=== PATIENT | female | born 1940 | race Caucasian/White ===

== ENCOUNTER 2018-04-15 06:01 | Inpatient (IN) | payer MEDICARE ==
--- NOTE | 2018-04-11 14:43 | HP ---
DATE OF ADMISSION: 04/15/2018 CHIEF COMPLAINT: Low back pain. HISTORY OF PRESENT ILLNESS: This is a 77-year-old female with past medical history of AAA, hypertens ion and hyperlipidemia who reports to our office today for evaluation of low back pain with right L5 radiculopathy. The patient reports that she has had pain in her low back and leg for approximately 5 years. She does not remember any specific injury. She states that her pain is the worst in the mor patel when she gets up. When she is shopping at the grocery store, she will lean on the cart, which w ill help relieve her pain some. Today, her pain is a 5/10. She is currently in physical therapy, wh ich gives her some relief, but nothing lasting. She has also had epidural steroid injections. Her l ast one was in 2017 and she does not want any more of them. REVIEW OF SYSTEMS: A 10-point review of systems has been completed and is negative other than stated above in the HPI. PAST MEDICAL HISTORY: Prolapsed bladder, AAA, hyperlipidemia, hypertension. PAST SURGICAL HISTORY: Hysterectomy in 1982, hemorrhoidectomy in 1983, right shoulder 1994, left kiran ulder in 1995, cataracts in 2007. FAMILY HISTORY: Father is . Mother is . Children are alive. SOCIAL HISTORY: The patient is a former smoker. She drinks alcohol occasionally and does not use an y other illicit drugs. The patient drinks about a cup to two of caffeine daily. She is retired and . MEDICATIONS: Fenofibrate, telmisartan-HCTZ, pravastatin, tramadol and low-dose aspirin. ALLERGIES: No known drug allergies. PHYSICAL EXAMINATION: CONSTITUTIONAL: Well-appearing, well-nourished, alert. MENTAL STATUS: Oriented to time, place and person. Normal attention span and concentration. Speech is spontaneous and fluent. Comprehension intact. Content appropriate. Normal fund of knowledge. CRANIAL NERVES: Pupils equal, round and reactive to light. Extraocular movements intact. Hearing i s grossly intact. MOTOR: Muscle strength normal in lower extremities. Muscle tone and bulk normal in lower extremitie s. 5/5 bilateral strength in IP, KE, KF, DF, PF, EHL, right L5 radiculopathy. Negative single leg r aise bilateral. Rotation of bilateral hips normal. Tender to palpation of spinous processes at L2 t hrough the sacrum. Deep tendon reflexes 2+ patellar bilaterally, 2+ ankle bilaterally. SENSORY: Light touch intact. GAIT AND STATION: Sit to stand normal. Normal gait. RESPIRATORY: Normal work of breathing on room air. CARDIOVASCULAR: Regular rate and rhythm. SKIN: No rashes or lesions on exposed skin. PSYCHIATRIC: Normal mood and affect. IMAGING: MRI of the lumbar spine, normal lordosis of the lumbar spine, spondylolisthesis of L4-L5 an d L5-S1. ASSESSMENT: Lumbar spondylolisthesis. PLAN: Dr. Ham has offered laminectomy and TLIF for L4 through S1. We have discussed the indic ations, risks, benefits, alternatives and expected results from surgery. The risks discussed include d, but were not limited to bleeding, infection, CSF leak, nerve damage, weakness, incontinence, cauda equina injury, arachnoiditis, paralysis, ventilator dependence, wheelchair dependence, loss of visio n, hardware misplacement, cardiopulmonary complications of anesthesia or and long-term complica tions discussed included, but are not limited to degradation of surrounding disks and the need for fu rther surgery. The patient states that she understands the risks of surgery and was willing to proce ed.
[2018-04-15] MEDS ORDERED: Phenylephrine HCL 10 MG/ML VIAL ONE (06:17)
[2018-04-15] MEDS ORDERED: Albumin 5% 500 ML ONE ×2 (06:17→14:16)
[2018-04-15] MEDS ORDERED: Nitroglycerin 50 MG/250 ML BOT 250 ML ONE (06:17)
[2018-04-15] MEDS ORDERED: Bupivacaine HCl 0.5%/Epinephrine 1:200,000/PF 30 ml Vial ONE (06:18)
[2018-04-15] MEDS ORDERED: Thrombin 5000 UNITS/5 ML VIAL ONE (06:18)
[2018-04-15] MEDS ORDERED: Sodium Chloride 0.9% 20 ML ONE (06:18)
[2018-04-15] MEDS ORDERED: CEFAZOLIN/Water 2 GM/20 ML SYRINGE ONE (06:26)
[2018-04-15 06:32] LABS: #Basophils 0.1 thou/uL (0.0-0.2); #Eosinphils 0.4 thou/uL (0.0-0.7); #Monocytes 1.1 thou/uL (0.11-0.59); #Neutrophils 4.8 thou/uL (1.40-6.50); %Eosinophils 5.2 % (0.0-10.0); %Lymphocytes 23.8 % (21.0-51.0); %Monocytes 12.6 % (0.0-10.0); %Neutrophils 57.4 % (42.0-75.0); Hemoglobin 13.8 g/dL (12.0-16.0); Mean Corpuscular HGB CONC 32.9 g/dL (32.0-36.0); Mean Corpuscular Hemoglobin 32.1 pg (27.0-31.0); Mean Corpuscular Volume 97.8 fL (78.0-98.0); Mean Platelet Volume 6.6 fL (7.4-10.4); Platelet Count 326 thou/uL (130-400); RBC Distribution Width 10.9 % (11.5-14.5); Red Blood Cell (RBC) Count 4.29 mill/uL (4.20-5.40); White Blood Cell (WBC) Count 8.4 thou/uL (4.8-10.8)
[2018-04-15 06:43] LABS: PTT 36.2 SEC (22.9-36.1); Prothrombin Time 13.4 SEC (12.0-14.7)
[2018-04-15] MEDS ORDERED: Fentanyl 100 MCG/2 ML VIAL ONE ×5 (07:03→15:37)
[2018-04-15] MEDS ORDERED: Ondansetron HCl/PF 4 MG/2 ML Vial IVP PRN ×2 (12:27→13:01)
[2018-04-15] MEDS ORDERED: HYDROmorphone 2 MG/ML VIAL SLOW IVP PRN (12:27)
[2018-04-15] MEDS ORDERED: Promethazine HCl 25 MG/ML VIAL IM PRN (12:27)
[2018-04-15] MEDS ORDERED: Meperidine HCl/PF 25 MG/ML VIAL SLOW IVP PRN (12:27)
[2018-04-15] MEDS ORDERED: Morphine Sulfate 2 MG/ML SYRINGE SLOW IVP PRN (12:27)
[2018-04-15] MEDS ORDERED: Promethazine HCl 25 MG/ML VIAL SLOW IVP PRN (12:27)
[2018-04-15] MEDS ORDERED: Nitroglycerin 2% Ointment 1 INCH/1 GM Packet ONE (12:48)
[2018-04-15] MEDS ORDERED: traMADol HCl 50 MG TAB PO PRN ×3 (13:01→13:57)
[2018-04-15] MEDS ORDERED: Milk Of Magnesia 30 ML UDCUP PO PRN (13:01)
[2018-04-15] MEDS ORDERED: Mag-Al 1200 mg/1200 mg/30 ML UDCUP PO PRN (13:01)
[2018-04-15] MEDS ORDERED: Bisacodyl 10 MG SUPP PR PRN (13:01)
[2018-04-15] MEDS ORDERED: Promethazine 25 MG TAB PO PRN (13:01)
[2018-04-15] MEDS ORDERED: Acetaminophen 650 MG Suppository PR PRN (13:01)
[2018-04-15] MEDS ORDERED: Zolpidem Tartrate 5 MG TAB PO PRN (13:01)
[2018-04-15] MEDS ORDERED: Acetaminophen 325 MG TAB PO PRN (13:01)
[2018-04-15] MEDS ORDERED: diphenhydrAMINE 25 MG CAP PO PRN (13:01)
[2018-04-15] MEDS ORDERED: tiZANidine HCl 4 MG TAB PO PRN (13:01)
[2018-04-15] MEDS ORDERED: diphenhydrAMINE 50 MG/ML VIAL IVP PRN (13:01)
[2018-04-15] MEDS ORDERED: Estrogens, Conjugated 30 GM TUBE VAG SCH (13:15)
[2018-04-15] MEDS ORDERED: Lidocaine 1% PF 5 ML VIAL ONE (13:44)
[2018-04-15] MEDS ORDERED: Glycopyrrolate 0.2 MG/ML 5 ML SYRINGE ONE (13:44)
[2018-04-15] MEDS ORDERED: ePHEDrine/0.9% NaCl/PF SYRINGE 50 mg/10 ml ONE (13:44)
[2018-04-15] MEDS ORDERED: PROPOFOL 200 MG/20 ML VIAL ONE (13:44)
[2018-04-15] MEDS ORDERED: Metoclopramide HCl 10 MG/2 ML VIAL ONE (13:44)
[2018-04-15] MEDS ORDERED: PHENYLEPHRINE-NS 100 MCG/ML 10 ML SYRINGE ONE ×2 (13:44→13:50)
[2018-04-15] MEDS ORDERED: Ondansetron HCl/PF 4 MG/2 ML Vial ONE ×2 (13:44→14:22)
--- NOTE | 2018-04-15 13:50 | OP ---
DATE OF PROCEDURE: 04/15/2018 SURGEON: Tommie Ham M.D. COMPOSING ROOM MACHINIST: Mira Dumas PA-C. PREOPERATIVE INDICATION: Treat pain, prevent neurological deterioration. PREOPERATIVE DIAGNOSES: Spondylolisthesis with resulting foraminal stenosis at L4-L5 causing L4 radi culopathy, spondylolisthesis at L5-S1 causing both canal and foraminal stenosis causing neurogenic cl audication and L5 radiculopathies. POSTOPERATIVE DIAGNOSES: Spondylolisthesis with resulting foraminal stenosis at L4-L5 causing L4 rad iculopathy, spondylolisthesis at L5-S1 causing both canal and foraminal stenosis causing neurogenic c laudication and L5 radiculopathies. OPERATIVE PROCEDURE: Decompressive laminectomy, facetectomy, foraminotomy to treat neural compressio n at L4-L5 and L5-S1, transforaminal lumbar interbody arthrodesis at L4-L5, L5-S1, placement of inter vertebral biomechanical device at L4-L5, L5-S1, pedicle screw and ximena instrumentation at L4-L5, L5-S1 , posterolateral arthrodesis at L4-L5, L5-S1, local morselized autograft, morselized allograft. PREOPERATIVE MEDICATION: Ancef 2 grams IV. DRAIN NUMBER: Zero. DRAIN TYPE: None. OPERATIVE DICTATION: The patient was brought to the operating room. General endotracheal anesthesia was induced. The patient was positioned prone on the [place] frame and a lateral fluoro radiograph was used to plan our incision. The lumbar skin was sterilely prepped and draped. We opened with a 1 0 blade knife and controlled bleeding with bipolar and monopolar cautery. We used monopolar cautery to dissect through subcutaneous tissues to the thoracodorsal fascia. We incised the fascia in the mi dline and we reflected paraspinal muscles off the spinous process and lamina of L4, L5, and S1. A se lf-retaining retractor was placed. Lateral fluoro radiograph confirmed the levels upon which we were operating. We then carried our dissection over the facet joints to identify the transverse process of L4-L5 and the sacral ala bilaterally. We irrigated with bacitracin irrigation. Self-retaining re tractors gave us visualization from L4-S1. We then used Adson and Kerrison rongeurs to fashion a ortega inectomy from L4 to the sacrum. We widened our laminectomy defect until we could access the vertebra l foramina. We widely opened the foramen at L4-L5 around the L4 nerve roots as well as at L5-S1 arou nd the L5 nerve roots to ensure no further radicular compression. We then turned our attention to ar throdesis. We accessed the intervertebral space through the foramen at L4-L5 and L5-S1 from the right side. We incised the disk space and removed disk contents using curettes and rongeurs. A rectangular shaped b one rasp was used to measure the height of each of the interspaces. L5-S1 measured 9 mm and L4-L5 me asured 11 mm. The appropriately sized PEEK intervertebral grafts were brought into the field. Jam ectomy bone was carefully morselized on the back table after all soft tissue was removed from it. Th e morselized bone was added to demineralized bone matrix and formed our fusion substrate. This subst rate was packed into the PEEK grafts and the grafts were advanced into their respective interspaces u nder radiographic guidance to the appropriate depth. We turned our attention to instrumentation. Using bony anatomic landmarks, palpation of the medial portion of the pedicles, and a lateral fluoro radiograph as a guide, we chose pedicle screw entry points at L4, L5, and S1 bilaterally. We drilled out the entry points and used the bone awl to create a trajectory through the pedicles into the vert ebral bodies. We tapped each trajectory and found them completely encased in bone. We placed pedicl e screws at L4, L5 and S1 bilaterally. The left-sided pedicle screw at S1 stripped due to low densit y bone. We placed a larger rescue screw in the hole and augmented that with bone cement. A 360 degr ee image set was generated with our isocentric C-arm, which confirmed adequate position of all our pe dicle screws. We irrigated once again with bacitracin irrigation and then we used a high-speed drill to decorticate the transverse process of L4, L5 and the sacral ala bilaterally. Over the decorticat ed bone, we left demineralized bone matrix and morselized autograft as posterolateral fusion substrat e. We then brought rods down into the screw heads and tightened caps over the rods. Using a keven sive force across the interspace to keep our interbody grafts in place, we used a scsmfb-[id number]-[id number] [id number] mechanism for adequate final tightening of the caps down on the rods. We irrigated once more with bacitracin irrigation. We ensured the vertebral foramen were still widely patent with foraminotomy Kerrisons. We infused local anesthetic in the paraspinal muscles. We closed the wound in anatomic l palomino. We applied a sterile dressing. This was a clean case and no contamination.
[2018-04-15] MEDS ORDERED: DOPamine 400 MG/D5W 250 ML 250 ML ONE (13:59)
[2018-04-15] MEDS ORDERED: Norepinephrine 4 MG/4 ML VIAL ONE ×2 (14:12→14:16)
[2018-04-15 15:02] LABS: Hemoglobin 10.6 g/dL (12.0-16.0)
[2018-04-15] MEDS ORDERED: Morphine 4 MG/ML VIAL ONE (15:16)
[2018-04-15 15:20] LABS: Anion Gap 14 mmol/L (10-20); BUN (Urea Nitrogen) 19 mg/dL (9.8-20.1); Calc. Creatinine Clearance 48 mL/min (70-130); Carbon Dioxide 19 mmol/L (23-31); Chloride 106 mmol/L (98-107); Estimated GFR-MDRD 56; Glucose 127 mg/dL (83-110); Potassium 3.8 mmol/L (3.5-5.1); Sodium 135 mmol/L (136-145)
[2018-04-15 15:27] LABS: Troponin I 0.011 ng/mL (< 0.028)
--- NOTE | 2018-04-15 15:32 | RAD ---
CHEST 1 VIEW: HISTORY: Status post surgery. COMPARISON: None. FINDINGS: Atherosclerosis of the aorta. Enlarged cardiac silhouette. Pulmonary vessels are within normal limi ts. Patchy reticulonodular opacities. No consolidation or mass. No pneumothorax or osseous abnorma lities. IMPRESSION: Cardiomegaly. Pulmonary vascular prominence and interstitial opacities. Correlate for congestive he art failure. An infiltrate cannot be excluded. Continued surveillance. POS: [facility]
[2018-04-15 15:33] LABS: CKMB 7.8 ng/mL (0-6.6)
[2018-04-15 16:32] VITALS: BMI 11.0
--- NOTE | 2018-04-15 17:17 | CON ---
DATE OF CONSULTATION: 04/15/2018 REASON FOR CONSULTATION: Hypotension and EKG changes. HISTORY OF PRESENT ILLNESS: Ms. Evans is a very pleasant 77-year-old woman who recently underwen t laminectomy, facetectomy and foraminotomy to treat neural compression. In the postoperative period, she developed hypotension and abdominal discomfort. She did require Thanh -Synephrine for blood pressure support. She did have significant EKG changes from her baseline. Her baseline EKG did suggest T-wave inversion from LVH. She did not describe chest pain or pressure. S he was conscious during the entire episode. She was placed in Trendelenburg. A bedside echo was performed in a stat fashion. Her LVEF appeared to be underfilled with no wall mot ion abnormalities. PAST MEDICAL HISTORY: AAA, hyperlipidemia, hypertension, prolapsed bladder. PAST SURGICAL HISTORY: Hysterectomy, hemorrhoidectomy, shoulder surgery, cataract surgery. SOCIAL HISTORY: No current tobacco or alcohol use. MEDICATIONS: Include fenofibrate, hydrochlorothiazide, pravastatin, tramadol, telmisartan and aspiri n. ALLERGIES: None. REVIEW OF SYSTEMS: Ten-point review of systems was difficult to obtain. PHYSICAL EXAMINATION: GENERAL: The patient is a pleasant female who is in no acute distress. The patient appears her stat ed age. She is currently on Thanh-Synephrine. VITAL SIGNS: Blood pressure 110/70, pulse 80, respirations 20. NEUROLOGIC: The patient is alert and oriented times 3 with no focal neurologic deficits. HEENT: Sclerae without icterus. Mouth has moist mucous membranes with normal pallor. NECK: No JVD. Carotid upstroke brisk. No bruits bilaterally. LUNGS: Clear to auscultation with unlabored respirations. BACK: No scoliosis or kyphosis. CARDIAC: Regular rate and rhythm with normal S1 and S2. No S3 or S4 noted. No significant rubs, mu rmurs, thrills, or gallops noted throughout the precordium. PMI is not displaced. There is no loli ternal heave. ABDOMEN: Soft, nontender, nondistended. No peritoneal signs present. No hepatosplenomegaly. No ab normal striae. EXTREMITIES: 2+ femoral and 2+ dorsalis pedis pulses. No cyanosis, clubbing, or edema. SKIN: No gross abnormalities. PERTINENT LABS: Hemoglobin 10.6. Peak troponin 0.011 with a CK-MB of 7.8. EKG as above. IMPRESSION: 1. Hypotension. 2. Abnormal EKG. RECOMMENDATIONS: Ms. Evans, after checking on Ms. Evans several times this afternoon, appear s to be improving. After several hours, she was seen sitting up. She never had chest pain or pressu re. Her CK-MB is likely related to surgery. Her troponin is negative. Etiology to hypotension is u nknown. We will continue support with fluids given that her LV appeared underfilled. Would also con tinue support with Thanh-Synephrine. I did spend 40 minutes of critical care time at bedside to discuss the case with Dr. Tsang in [facility] n to reviewing her echo in the acute phase.
[2018-04-15] MEDS: CEFAZOLIN/Water 2 GM/20 ML SYRINGE SLOW IVP SCH ×2 (17:44→22:58)
[2018-04-15] MEDS ORDERED: Norepinephrine 8 MG/250 ML BAG IVPB PRN (18:42)
[2018-04-15] MEDS: Sodium Chloride 0.9% 1,000 ML IV SCH (20:57)
[2018-04-15] MEDS: Simvastatin 5 MG TAB PO SCH (20:57)
[2018-04-15] MEDS ORDERED: Non-Formulary Item 1 EACH (Telmisartan/Hydrochlorothiazid [Telmisartan-Hctz 80-12.5 Mg Tb PO SCH (21:00)
[2018-04-15] MEDS: Fenofibrate Nanocrystallized 145 MG TAB PO SCH (21:00)
[2018-04-15] MEDS: Hydrochlorothiazide 25 MG TAB PO SCH (21:00)
[2018-04-15] MEDS: Acetaminophen/Codeine 30-300mg Tablet PO PRN (21:06)
[2018-04-16] MEDS: Acetaminophen/Codeine 30-300mg Tablet PO PRN ×6 (00:53→20:19)
--- NOTE | 2018-04-16 05:53 | PDOC.CTH ---
Cardiology Progress Note - Objective Vital Signs Temp Pulse Resp Pulse Ox 04/16/18 03:36 98.1 F 04/16/18 00:00 98.4 F 04/15/18 20:00 98.1 F 84 18 95 04/15/18 19:00 98.1 F Weight 62 lb 1 oz 04/14/18 04/15/18 04/16/18 06:59 06:59 06:59 Intake Total 524.9 Output Total 1000 Balance -475.1 - Labs Result Diagrams: 04/15/18 14:51 04/15/18 14:51 Troponin/CKMB CK-MB (CK-2) 7.8 ng/mL (0-6.6) H* 04/15/18 14:51 Troponin I 0.011 ng/mL (< 0.028) 04/15/18 14:51 - Assessment/Plan Hypotension EKG changes Pt is off presors currently. Etiology to recent demise likely related to demand ischemia post op or from general anesthesia Initial troponin and CKMB negative Ok to transfer to surgical
[2018-04-16 06:42] LABS: CKMB 11.5 ng/mL (0-6.6); Troponin I 1.363 ng/mL (< 0.028)
--- NOTE | 2018-04-16 06:48 | PRG ---
DATE OF SERVICE: 04/16/2018 I saw Ms. Evans in ICU this morning. She is 1 day out from decompression fusion lumbar spine for spondylolisthesis at L4-5 and L5-S1 causing neural compression. Postoperatively, she had a slow rec overy from anesthesia. Her blood pressure was low and as best I can tell, she was hypovolemic and devi ving effects of anesthesia. Pressors were added and then her blood pressure returned to a range that was too high after which Cardiology was consulted for ST segment changes and blood pressure lability . Troponins were negative, but she was placed in the ICU for monitoring. Cardiology has already see n her this morning and cleared her for transfer to the surgical floor. Ms. Evans is wide awake t his morning. She is doing well. She is moving her legs well. She does not have any radiating pain down her legs. She has some anterior thigh numbness from positioning on the operative table, but oth erwise she feels well. She is ready to get fitted for her brace and wants to get moving with physica l therapy. We will make plans for those things to happen today. Her vitals and examination are stab le and I think she is ready for the change in location.
[2018-04-16] MEDS: Sodium Chloride 0.9% 1,000 ML IV SCH (09:59)
--- NOTE | 2018-04-16 13:24 | PRG ---
DATE OF SERVICE: 04/16/2018 HISTORY: Ms. Evans is currently doing well, no current complaints of chest pain, pressure, short ness of breath. She is off Thanh-Synephrine. She is only on normal saline. PHYSICAL EXAMINATION: VITAL SIGNS: Blood pressure 106/48, pulse 58, temperature 83. GENERAL: Patient is a pleasant female who is in no acute distress. The patient appears her stated ag e. NEUROLOGIC: The patient is alert and oriented times 3 with no focal neurologic deficits. HEENT: Sclerae without icterus. Mouth has moist mucous membranes with normal pallor. NECK: No JVD. Carotid upstroke brisk. No bruits bilaterally. LUNGS: Clear to auscultation with unlabored respirations. BACK: No scoliosis or kyphosis. CARDIAC: Regular rate and rhythm with normal S1 and S2. No S3 or S4 noted. No significant rubs, mur murs, thrills, or gallops noted throughout the precordium. PMI is not displaced. There is no parast ernal heave. ABDOMEN: Soft, nontender, nondistended. No peritoneal signs present. No hepatosplenomegaly. No abn ormal striae. EXTREMITIES: 2+ femoral and 2+ dorsalis pedis pulses. No cyanosis, clubbing, or edema. SKIN: No gross abnormalities. PERTINENT LABS: Hemoglobin 10.6. Peak troponin 1.3. CK-MB of 11.5. IMPRESSION: 1. Hypotension. 2. Abnormal EKG. RECOMMENDATIONS: Ms. Evans did have elevated troponin of 1.3. This is likely related to hypoten yinka. Etiology unknown, but may be related to anesthesia. During the episode of hypotension her LVE F was hyperdynamic with LVEF greater than 60%. I did state that if this was due to profound ischemia her LVEF likely would have been affected causing a marked drop in EF. Given that her EKG did appear to worsen she likely had underlying coronary disease. Given that she has no current symptoms we nicanor l continue current medical therapy. I would not recommend a more aggressive approach, given the need for anticoagulation therapy and recent back surgery. At this point, I recommend statin therapy in a ddition to beta ricardo therapy when blood pressure tolerates. I would recommend outpatient workup.
[2018-04-16] MEDS: Fenofibrate Nanocrystallized 145 MG TAB PO SCH (20:18)
[2018-04-16] MEDS: Simvastatin 5 MG TAB PO SCH (20:19)
[2018-04-16] MEDS: Hydrochlorothiazide 25 MG TAB PO SCH (20:59)
[2018-04-17] MEDS: Acetaminophen/Codeine 30-300mg Tablet PO PRN ×3 (04:01→19:20)
--- NOTE | 2018-04-17 07:12 | PRG ---
DATE OF SERVICE: 04/17/2018 Ms. Evans is now 2 days out from decompression fusion lumbar spine. She has not had any symptoma tic hypotension since the episode postoperatively. She has been doing well and she is on a general t thomas floor currently. Physical therapy has worked with her and she uses her brace when she is out of bed. Although there is some discomfort over the greater trochanteric bursa and some femoral cutaneou s nerve paresthesias from both of which were from positioning on the operating table, there is no rad iculopathic pain down the legs. She is pleased with the surgical result. On examination, I do not f ind any new deficits. Her troponin did bump over 1 from her hypotensive episode, but she had no wall motion abnormalities. Our plan for Ms. Evans is to move to inpatient rehabilitation. She expressed her wishes to be co nsidered a candidate for that today and will have the appropriate people come and evaluate her to see she is. If so, we can transfer her any time. We will continue physical therapy until we have a dis position plan for her. Her daughter and other children are concerned about her going home with her e lderly in [place] and living on their own. There is some hesitancy with activities of rosa ly living that might benefit from inpatient rehabilitation.
[2018-04-17] MEDS ORDERED: Iopamidol 370 76% 100 ML VIAL ONE (13:04)
[2018-04-17 14:24] LABS: CO2 Tension 27.2 mmHg (35.0-45.0); pH, Arterial 7.51 (7.35-7.45)
[2018-04-17 14:25] LABS: Actual Bicarbonate (HCO3a) 21.1 mEq/L (22-28); Base Excess (BEa) -1.1 mEq/L (-2.0 to +3.0); Calcium, Ionized 1.1 mmol/L (1.12-1.30); Carboxyhemoglobin (COHb) 0.7 gm% (0.0-3.0); Hemoglobin (Hb) 10.3 g/dL (12.0-16.0); O2 Tension (PaO2) 44.9 mmHg (> 70.0); Potassium - ABG Lab 4.3 mmol/L (3.70-5.30); Puncture Site RRA
--- NOTE | 2018-04-17 14:41 | PDOC.PN ---
- Subjective Encounter Start Date: 04/17/18 Encounter Start Time: 14:39 Subjective: called to code green, respiratory distress. post op 2 days - Objective MAR Reviewed: Yes Vital Signs & Weight: Vital Signs (12 hours) Temp Pulse Pulse Pulse Resp BP BP 04/17/18 14:19 118 H 123 H 133/79 133/71 04/17/18 12:00 100.5 F H 86 20 04/17/18 08:05 97.9 F 80 16 04/17/18 07:45 97.9 F 80 16 04/17/18 04:00 98.9 F 91 18 BP Pulse Ox Pulse Ox 04/17/18 14:19 79 L 04/17/18 12:00 98/52 L 92 L 04/17/18 08:05 92 L 04/17/18 07:45 101/54 L 92 L 04/17/18 04:00 98/48 L 96 Weight Weight 136 lb Most Recent Monitor Data Heart Rate from ECG 81 NIBP 98/47 NIBP BP-Mean 69 Respiration from ECG 25 SpO2 100 I&O: 04/16/18 04/17/18 04/18/18 06:59 06:59 06:59 Intake Total 1658.6 2736 Output Total 1225 1050 Balance 433.6 1686 Result Diagrams: 04/17/18 14:20 04/17/18 14:20 Radiology Reviewed by me: Yes (CTA- no pE) EKG Reviewed by me: Yes (RSSR, LVH with repol abn) Phys Exam - Physical Examination Neck: no JVD Respiratory: clear to auscultation bilateral Cardiovascular: no significant murmur tacycardia Gastrointestinal: soft, positive bowel sounds Musculoskeletal: no edema some R calf tenderness Neurological: non-focal Dx/Plan (1) Acute respiratory failure with hypoxia Code(s): J96.01 - ACUTE RESPIRATORY FAILURE WITH HYPOXIA Status: Acute (2) Respiratory distress Code(s): R06.03 - ACUTE RESPIRATORY DISTRESS Status: Acute (3) Hypertension Code(s): I10 - ESSENTIAL (PRIMARY) HYPERTENSION Status: Chronic Qualifiers: Hypertension type: essential hypertension Qualified Code(s): I10 - Essential (primary) hypertension (4) Fever Code(s): R50.9 - FEVER, UNSPECIFIED Status: Acute Qualifiers: Fever type: unspecified Qualified Code(s): R50.9 - Fever, unspecified (5) Leukocytosis Code(s): D72.829 - ELEVATED WHITE BLOOD CELL COUNT, UNSPECIFIED Status: Acute - Plan CTA chest stat. ABG, cbc, trop, etc stat. echo ordered -: on non-rebreather O2 -: Add: CTA no PE, trop decresed from 04/16 -: cardiology, intensivst called -: treat for early PNA * .
[2018-04-17 14:44] LABS: Hemoglobin 9.8 g/dL (12.0-16.0); Mean Corpuscular Hemoglobin 33.2 pg (27.0-31.0); Mean Corpuscular Volume 97.7 fL (78.0-98.0); Mean Platelet Volume 6.8 fL (7.4-10.4); Platelet Count 264 thou/uL (130-400); RBC Distribution Width 10.8 % (11.5-14.5); Red Blood Cell (RBC) Count 2.96 mill/uL (4.20-5.40); White Blood Cell (WBC) Count 16.5 thou/uL (4.8-10.8)
[2018-04-17 14:52] LABS: Anion Gap 13 mmol/L (10-20); BUN (Urea Nitrogen) 16 mg/dL (9.8-20.1); Calc. Creatinine Clearance 43 mL/min (70-130); Calcium 8.6 mg/dL (7.8-10.44); Carbon Dioxide 23 mmol/L (23-31); Chloride 102 mmol/L (98-107); Estimated GFR-MDRD 50; Glucose 131 mg/dL (83-110); Potassium 4.2 mmol/L (3.5-5.1); Sodium 134 mmol/L (136-145)
[2018-04-17 15:02] LABS: Band 6 % (5-11); Lymphocytes 4 % (21-51); MDiff Complete? YES; Monocytes 5 % (0-10); Neutrophil 85 % (42-75); PLT Morphology Comment Appears Adequate; Polychromasia SLIGHT = 2-3 cells (100X) (0-2/hpf); Troponin I 0.837 ng/mL (< 0.028); Vacuoles SLIGHT
--- NOTE | 2018-04-17 15:24 | RAD ---
SUPINE PORTABLE CHEST ONE VIEW: History: 77-year-old female with history of acute dyspnea. Code Green. FINDINGS: Monitor leads overlie the chest. There are some bilateral vascular congestion and what may be some ve ry mild perihilar interstitial edema. Heart size is upper range of normal. No confluent pneumonia. Li ttle change from prior exam 04-15-18. IMPRESSION: Overall stable exam from 04-15-18 with bilateral vascular congestion and mild interstitial edema. No n ew confluent process. Atherosclerosis of the aorta with ectasia. Little changed from prior study. POS: [facility]
--- NOTE | 2018-04-17 15:42 | CT ---
CT ANGIOGRAM OF THE CHEST: Date: 04/17/18 HISTORY: Possible pulmonary artery embolism. Patient has had a previous laminectomy. Today, patient presents w ith shortness of breath. COMPARISON: None. TECHNIQUE: CT angiogram of the chest is performed in the axial plane. Three-dimensional reformatted images are s ubmitted for interpretation. FINDINGS: Trachea and central bronchi are patent. There are interstitial and alveolar opacities involving both upper lobes and superior segment of both lower lobes. Adjacent pleural fluid is noted. Atelectasis, p neumonia, and/or aspiration should be considered. Note, there is a nodular opacity in the right upper lobe measuring 1.0 x 0.9 cm. Nodular opacity in t he left upper lobe measuring 0.5 x 0.8 cm. There is no pneumothorax. Visualized upper solid organs are grossly unremarkable. Hypodensity in the left hepatic lobe, compati ble with a cyst. There is a nonspecific peripancreatic lesion, incompletely evaluated, measuring 1.0 x 1.5 cm. The heart size is within normal limits. No pericardial effusion. The thoracic aorta and upper abdomin al aorta do demonstrate atherosclerosis. There is mild to moderate narrowing of the distal descending thoracic aorta. No aneurysm. There is increased hypodensity in a subcarinal region. The possibility of subcarinal lymphadenopathy cannot be excluded. Possible lymph node measures 2.0 x 2.4 cm. Additional precarinal lymph node is lbackburn spected, measuring 2.2 x 2.0 cm. Adequate contrast opacification of the pulmonary arterial system to the level of the segmental arteri es. No filling defect to suggest thromboembolism. No lytic or blastic lesions in the osseous structures. IMPRESSION: 1. No evidence of pulmonary artery embolism to the level of the segmental arteries. 2. Nonspecific mediastinal lymphadenopathy, worrisome for infectious, inflammatory, and malignant pr ocess, until proven otherwise. 3. Opacification of lung parenchyma, which is presumed to be due to aspiration, pneumonia, or atelec tasis. However, there appear to be two nodular opacities in the lungs as described above. Given the p resence of lymphadenopathy, underlying neoplastic process cannot be completely excluded. 4. Incompletely evaluated soft tissue mass in the peripancreatic region, also incompletely evaluated . Further evaluation with abdomen CT and pelvic CT is recommended. CODE T. POS: [facility]
[2018-04-17] MEDS ORDERED: Sodium Chloride 0.9% 500 ML IV SCH (16:30)
--- NOTE | 2018-04-17 16:39 | CON ---
DATE OF CONSULTATION: 04/17/2018 CRITICAL CARE NOTE Total critical care time 40 minutes. HISTORY OF PRESENT ILLNESS: Ms. Evans is a very pleasant 77-year-old woman who was doing relativ kandace well. She was undergoing rehabilitation today on telemetry monitoring. She states she began hav ing shakiness. She then had an episode of shortness of breath and became hypoxic. There was concern for PE. Riccardo Fierro was called. I visited with Ms. Evans while she was having her stat CT scan performed. At that point, her blood pressure and heart rate were stable. She has no current symptom s except for pain noted below her knees bilaterally. No chest pain, pressure or shortness of breath. Blood pressure at that time was 110/60 with pulse of 86. She did have nonrebreather oxygenating at 95%. I then visited Ms. Evans as she proceeded to the ICU for close observation. She underwent a stat echo that showed a hyperdynamic LVEF. LVEF did appear under-filled. No wall motion abnormalities p resent. I also discussed the case on several occasions with Dr. Ham. There is concern for antiplatelet or anticoagulation therapy for Ms. Evans due to recent laminectomy and risk of hematoma. Given that she has no current symptoms of angina and had her LVEF is hyperdynamic with no wall motion abnor malities with negative PE, would recommend close observation. Would recommend IV fluids. We will gi ve a 500 mL bolus of fluid followed by 150 mL an hour. We will check CK troponins. May consider ang iography, but mainly be diagnostic if needed at some point.
[2018-04-17] MEDS: cefTRIAXone\\ROCEPHIN 2 GM in Sodium Chloride 0.9% 100 ML IVPB SCH (16:47)
[2018-04-17] MEDS: Sodium Chloride 0.9% 1,000 ML IV SCH (16:51)
[2018-04-17] MEDS: Azithromycin 500 MG in Sodium Chloride 0.9% 250 ML 250 ML IVPB SCH (16:53)
--- NOTE | 2018-04-17 16:53 | ULT ---
BILATERAL LOWER EXTREMITY VENOUS DOPPLER ULTRASOUND: Date: 04/17/18 HISTORY: Immobility. Lower extremity swelling. TECHNIQUE: Ward scale ultrasound with color flow and spectral Doppler imaging of the deep venous systems of the lower extremities was performed bilaterally. FINDINGS: There is good flow, compression, and augmentation noted in the common femoral, femoral, deep femoral, popliteal, posterior tibial, and greater saphenous veins on either side. 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 IMPRESSION: No evidence of deep venous thrombosis in either lower extremity. POS: [facility]
--- NOTE | 2018-04-17 18:30 | HP ---
DATE OF ADMISSION: 04/15/2018 HISTORY OF PRESENT ILLNESS: The patient was admitted to the hospital 04/15/2018, had a decompressive laminectomy, facetectomy, etc., on 04/15/2018. I was walking down the hallway when a code green was called on the patient. I walked into the room, she was in respiratory distress, ashen with some per ipheral cyanosis. I quickly checked and found that she had no hospitalist seeing her. I asked her a nd the family if they were comfortable with my caring for, they said yes and I assumed her care. The patient had had troubles earlier in the day with being shaky. She has had a fever to 100.5 last nig ht. She was short of breath, had some tightness in her chest. I found that she had O2 saturations i n the 80s. Multiple studies were ordered. The patient was moved to the intensive care unit on nonre breather. PAST MEDICAL HISTORY: In addition to the recent surgery reveals history of hypertension, dyslipidemi a, prolapsed bladder, abdominal aortic aneurysm. PAST SURGICAL HISTORY: Hysterectomy, hemorrhoidectomy, right shoulder, left shoulder and cataract blackburn rgery. FAMILY HISTORY: Parents were . SOCIAL HISTORY: Former smoker, occasional alcohol. Full code status. MEDICATIONS: Routinely include fenofibrate, HCTZ-telmisartan, pravastatin, tramadol and low-dose asp irin. ALLERGIES: No known drug allergies. PHYSICAL EXAMINATION: GENERAL: At the time she was moved, she was alert, tachypneic, in obvious distress. VITAL SIGNS: Pulse ranged 120 plus or minus, blood pressure was in the 130/80 range, pulse ox was 79 , respiratory rate was 36. HEAD, EYES, EARS, NOSE AND THROAT: Pupils equal, round and reactive. Extraocular movements are inta ct. Sclerae were white. Mouth was clear. NECK: Revealed no jugular venous distention, adenopathy or thyromegaly. CHEST: Clear anteriorly and posteriorly. HEART: Tachycardic with no appreciated murmurs. S1, S2 were clear. ABDOMEN: Soft. Bowel sounds were normal. There is no hepatosplenomegaly, no mass, no rebound. EXTREMITIES: Reveal no cyanosis, clubbing or edema. She did have some minor pain in her right lower extremity. She was neurologically intact. Pulses were intact. LABORATORY DATA: A stat EKG revealed regular sinus rhythm with LVH with repolarization abnormality c onsistent with her old ones. A stat blood gas was dramatically abnormal with a pH of 7.51, CO2 of 27 .2 and an O2 of 44.9. Because of the blood gas and the acute respiratory distress, a stat CT angio o f the chest was done, which revealed that she had not had pulmonary embolus. Other laboratories, the troponin was 0.837, which is actually lower than the previous day when she devi s been seen by Cardiology, 1.363. Electrolytes revealed only a low sodium of 134, glucose of 131. W erkia count was markedly elevated at 16.5, hemoglobin 9.8, she had been 10.6 previously the day before , platelet count 264,000. Her venous Doppler revealed no evidence of DVT. As mentioned before, the CT angiogram, there was a suggestion of pneumonia. Chest x-ray revealed some bilateral pulmonary vas cular congestion and interstitial edema. Dr. Vera, Cardiology, who had seen the patient previous day was called. Blood cultures were don e because of elevated white count and a fever the night before. She has been started on Rocephin and Zithromax for possible pneumonia. Dr. Fontana, sealing machine operator, was consulted. When I last saw the pat john about an hour ago, she was dramatically improved, calm, normal cardiorespiratory exam. Her O2 s at was 97. Overall, it is certainly not clear what happened to this lady; however, she is markedly i mproved at this point. We will continue to follow. One hour intensive care spent caring for this patient.
[2018-04-17 18:35] LABS: CKMB 2.8 ng/mL (0-6.6)
[2018-04-17 18:46] LABS: Troponin I 0.941 ng/mL (< 0.028)
[2018-04-17] MEDS: Simvastatin 5 MG TAB PO SCH (19:20)
[2018-04-17] MEDS: Fenofibrate Nanocrystallized 145 MG TAB PO SCH (19:21)
[2018-04-17 20:04] LABS: Bilirubin Negative (Negative); Blood, Urine Negative (Negative); Clarity CLEAR (Clear); Glucose, Urine (Dipstick) Negative (Negative); Leukocyte Negative (Negative); Nitrite Negative (Negative); Protein, Urine (Dipstick) Negative (Neg-Trace); Specific Gravity, Urine 1.037 (1.002-1.036); Urobilinogen 0.2 mg/dL (0.2-1.0)
[2018-04-17 20:08] LABS: Bacteria/HPF None Seen HPF (None Seen); Hyaline Casts/LPF 4-6 HYALINE CAST LPF (0-3 Hyaline); RBC/HPF 0-3 HPF (0-3); WBC/HPF 0-3 HPF (0-3)
[2018-04-18] MEDS: Sodium Chloride 0.9% 1,000 ML IV SCH ×6 (01:09→18:55)
[2018-04-18] MEDS: Acetaminophen/Codeine 30-300mg Tablet PO PRN ×4 (03:35→21:07)
--- NOTE | 2018-04-18 05:41 | PDOC.CTH ---
Cardiology Progress Note - Subjective Pt continues with hypotension. No current symptoms of angina - Objective Vital Signs Temp Pulse Resp Pulse Ox 04/17/18 20:00 99.3 F 103 H 14 100 Weight 124 lb 5.451 oz 04/16/18 04/17/18 04/18/18 06:59 06:59 06:59 Intake Total 1658.6 2736 1136 Output Total 1225 1050 550 Balance 433.6 1686 586 - Physical Examination General/Neuro: alert & oriented x3, NAD Neck: carotid US brisk, no JVD present Lungs: CTA, unlabored respirations Heart: RRR Abdomen: NT/ND, soft Extremities: + femoral B - Labs Result Diagrams: 04/17/18 14:20 04/17/18 14:20 Troponin/CKMB CK-MB (CK-2) 2.8 ng/mL (0-6.6) 04/17/18 17:44 Troponin I 0.941 ng/mL (< 0.028) H* 04/17/18 17:44 - Assessment/Plan abnomrla EKG hypotension elevated troponin recent laminectomy Reason for recent code green unknown. May have been related to hypovolemia? Pt continues to appear underfilled on echo times two with a hyperdynamic LV (EF 60-65%) Continue with IVF Monitor through out the weekend Consider a stress test if symptoms arise Pt without CP or SOB present dfuring either episode time two recently Trying to avoid angiogram given recent laminectomy If CAD is cause of hypotension, it should present with a diminish in EF not hyperdynamic EF. Check random cortisol level
--- NOTE | 2018-04-18 07:22 | PRG ---
DATE OF SERVICE: 04/18/2018 Ms. Evans is seen in the ICU this morning. Yesterday, she had an event on her telemetry unit in which it was a little difficult for her to catch her breath and she had some shaking chills. Her hea rt was reevaluated and the ejection fraction looked good, the heart muscle looked strong. A CT of th e chest was negative for PE and ultrasound of the lower extremities was performed and multiple labs h ave been evaluated. Overnight, Ms. Evans has done relatively well. Her right knee continues to ache. Her vital signs have been stable and she has been on some increased IV fluids to increase the preload to the heart. On examination, Ms. Evans is wide awake. She answers questions appropriat kandace. She is in a good mood. Her affect his great. She is not terribly concerned about the event ye sterday and feels back to normal today. I do not find any new neurological deficits in her lower ext remities. When I examined her right knee it is tender at the joint line. The right knee also feels warm compared to the right thigh and the right calf. It is also warmer than the left knee and ice ba g has been applied overnight and even in spite of the ice pack on one side of the knee, on the medial side and the lateral knee is still warm. Ms. Evans's test results have been reviewed. The CT angiogram of the chest is negative for PE. An ultrasound of the lower extremities has also been performed. A Meadows's cyst has been identified, but there is no DVT. Hemoglobin is 9.8. Troponin is 0.9, having reached a maximum of 1.36 on the . No bacteria are seen on the urinalysis. I am going to have Orthopedics evaluate the knee. We will restart physical therapy as she can tolera te it. We will continue to monitor carefully for cardiac function. I will defer to Cardiology as fa r as getting out of the ICU. Plans are still being made for rehab placement.
[2018-04-18] MEDS ORDERED: Sodium Chloride 0.9% 500 ML IV SCH (09:15)
--- NOTE | 2018-04-18 15:04 | EKG ---
Test Reason : REPEAT Blood Pressure : / mmHG Vent. Rate : 076 BPM Atrial Rate : 076 BPM P-R Int : 224 ms QRS Dur : 100 ms QT Int : 424 ms P-R-T Axes : 054 003 167 degrees QTc Int : 477 ms Sinus rhythm with 1st degree A-V block Left ventricular hypertrophy with repolarization abnormality Marked ST abnormality, possible anterior subendocardial injury Abnormal ECG Confirmed by TOPHER TRONCOSO MD ([id number]) on 04/18/2018 3:03:53 PM Referred By: MIGUEL Confirmed By:TOPHER TRONCOSO MD
--- NOTE | 2018-04-18 15:04 | EKG ---
Test Reason : POST OP Blood Pressure : / mmHG Vent. Rate : 079 BPM Atrial Rate : 079 BPM P-R Int : 198 ms QRS Dur : 090 ms QT Int : 436 ms P-R-T Axes : 036 001 144 degrees QTc Int : 499 ms Normal sinus rhythm Left ventricular hypertrophy with repolarization abnormality Prolonged QT Abnormal ECG No previous ECGs available Confirmed by TOPHER TRONCOSO MD ([id number]) on 04/18/2018 3:03:41 PM Referred By: CONCHITA Confirmed By:TOPHER TRONCOSO MD
--- NOTE | 2018-04-18 15:05 | EKG ---
Test Reason : Blood Pressure : / mmHG Vent. Rate : 075 BPM Atrial Rate : 075 BPM P-R Int : 198 ms QRS Dur : 096 ms QT Int : 412 ms P-R-T Axes : 051 012 082 degrees QTc Int : 460 ms Normal sinus rhythm Left ventricular hypertrophy with repolarization abnormality Abnormal ECG When compared with ECG of 15-APR-2018 14:05, (Unconfirmed) ST no longer depressed in Anterior leads T wave inversion less evident in Anterolateral leads Confirmed by TOPHER TRONCOSO MD ([id number]) on 04/18/2018 3:04:52 PM Referred By: KARYNA Confirmed By:TOPHER TRONCOSO MD
--- NOTE | 2018-04-18 15:16 | EKG ---
Test Reason : CODE GREEN Blood Pressure : / mmHG Vent. Rate : 129 BPM Atrial Rate : 129 BPM P-R Int : 158 ms QRS Dur : 082 ms QT Int : 288 ms P-R-T Axes : 000 015 160 degrees QTc Int : 421 ms Sinus tachycardia Left ventricular hypertrophy with repolarization abnormality Abnormal ECG Confirmed by TOPHER TRONCOSO MD ([id number]) on 04/18/2018 3:16:04 PM Referred By: SCOTT Confirmed By:TOPHER TRONCOSO MD
--- NOTE | 2018-04-18 15:16 | EKG ---
Test Reason : Blood Pressure : / mmHG Vent. Rate : 091 BPM Atrial Rate : 091 BPM P-R Int : 184 ms QRS Dur : 094 ms QT Int : 370 ms P-R-T Axes : 025 006 135 degrees QTc Int : 455 ms Normal sinus rhythm Left ventricular hypertrophy with repolarization abnormality Abnormal ECG Confirmed by TOPHER TRONCOSO MD ([id number]) on 04/18/2018 3:16:29 PM Referred By: NEIL Confirmed By:TOPHER TRONCOSO MD
--- NOTE | 2018-04-18 15:24 | RAD ---
FOUR VIEWS OF THE RIGHT KNEE: INDICATION: Right knee effusion. COMPARISON: None. FINDINGS: There are small marginal osteophytes effacing all major compartments of the right knee. There is cho ndrocalcinosis seen involving the menisci as well as the hyalan cartilage of the right knee which can be seen entities such as calcium pyrophosphate dihydrate deposition disease. There is nodular capsu lar distention. No acute fracture or subluxation is evident. IMPRESSION: 1. No acute osseous abnormality. 2. 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 3. Chondrocalcinosis. POS: [facility]
[2018-04-18] MEDS: Azithromycin 500 MG in Sodium Chloride 0.9% 250 ML 250 ML IVPB SCH (16:21)
[2018-04-18] MEDS: cefTRIAXone\\ROCEPHIN 2 GM in Sodium Chloride 0.9% 100 ML IVPB SCH (17:42)
[2018-04-18] MEDS: Fenofibrate Nanocrystallized 145 MG TAB PO SCH (20:19)
[2018-04-18] MEDS: Simvastatin 5 MG TAB PO SCH (20:20)
--- NOTE | 2018-04-18 21:28 | CON ---
DATE OF CONSULTATION: 04/18/2018 SERVICE: Pulmonary Medicine. HISTORY OF PRESENT ILLNESS: The patient is a 77-year-old white female with past medical history significant for chronic low back pain. She underwent a laminectomy 3 days ago. Yesterday, she was on the floor working with physical therapy when she lost all of her strength. She had a hard time breathing. She was put into a gurney. Ultimately, Dr. Garza was luckily in the area. He evaluated the patient and got her down to the ICU. Overnight, she got antibiotics, couple liters of fluid. She subsequently recovered her oxygen saturations, and started breathing much better. An ABG was performed consistent with acute hypoxic respiratory failure with compensatory hyperventilatory changes. She was put on a nonrebreather. Her breathing settled down, and she became less dusky. Otherwise, this morning, I found her back to her usual state of health. She had a little bit of a fever last night. PAST MEDICAL HISTORY: 1. Hypertension. 2. Dyslipidemia. 3. Abdominal aortic aneurysm. 4. Prolapse of the bladder. PAST SURGICAL HISTORY: 1. Hysterectomy. 2. Hemorrhoidectomy. 3. Right shoulder surgery. 4. Left shoulder surgery. 5. Cataract surgery. 6. Lumbar laminectomy. FAMILY HISTORY: Noncontributory. SOCIAL HISTORY: She has a 60-ausl-vafo history of smoking, but quit remotely. She never smoked more than a pack per week. She denies any alcohol or illicit drug use. She has no exposure to chemicals, dust, asbestos or tuberculosis. ALLERGIES: No known drug allergies. MEDICATIONS: List of her inpatient medications was reviewed. No specific updates were made at this time. REVIEW OF SYSTEMS: General, head, ears, eyes, nose, throat, cardiovascular, respiratory, GI, , musculoskeletal, neurologic and skin is negative except as mentioned in the HPI. PHYSICAL EXAMINATION: VITAL SIGNS: Afebrile, pulse 82, blood pressure 112/45, respirations 23, saturation 96% on 2 liters nasal cannula. GENERAL: The patient is awake and alert, in no apparent distress. LUNGS: Decent air entry. I do not appreciate any prolonged expiratory phase, wheezing, rhonchi or crackles. HEART: Normal rate, regular. ABDOMEN: Soft, nontender, nondistended. Bowel sounds are positive. MUSCULOSKELETAL: No cyanosis or clubbing. There is no pitting in the bilateral lower extremities. The right knee is not hot, red, but is slightly swollen. I do not see a large effusion. GENITOURINARY: No Tavarez catheter. NEUROLOGIC: Grossly nonfocal. LABORATORY DATA: WBC 16.5, hemoglobin 9.8, platelets 264,000. INR 1.0. A pH of 7.51, pCO2 of 27, pO2 of 45. Basic metabolic profile is otherwise unremarkable. Troponin is gently up trending to 0.94, cortisol level is normal. Urinalysis is unremarkable. Urine cultures negative x1. IMAGING: CTA of the chest did not have any evidence of an acute pulmonary embolism. She has small bilateral pleural effusions, and infectious pneumonitis , consistent with possible aspiration related changes. Small amounts of emphysema are otherwise noted. The left atrium is significantly dilated. Mediastinal lymph nodes are prominent. ASSESSMENT: 1. Acute hypoxic respiratory failure. 2. Community-acquired pneumonia, secondary to overt aspiration, suspected. 3. Non-ST elevation myocardial infarction, possibly from demand DISCUSSION AND PLAN: We will continue to follow the results of blood cultures. Empiric antibiotics directed at lung issues will be continued. Overall, the patient has made a dramatic turnaround over the last 24 hours. We will follow her CBC and her basic metabolic profile through time. When she clears her sepsis profile, we would like to diurese her back down to euvolemia. She has bilateral pleural effusions and very enlarged left atrium on the CT of the chest. I note that she has mitral regurgitation. There is a possibility that we are dealing with a flash pulmonary edema event associated with hypertension around the time of the respiratory failure. Either way, blood pressure management moving forward will be paramount. She will remain in the ICU today, but if she maintains stability, she can be considered for transition out of the hospital. Of note, screen is strongly positive for obstructive sleep apnea. As such, an outpatient PSG will need to be considered at some point in the future. 70 minutes have been devoted to this patient in various activities. I personally reviewed all imaging studies and laboratory data noted within this document. For fifty percent of this time, I was interacting with the patient at the bedside or coordinating care with the care team. For the remainder of the time I was immediately available to the patient in the hospital unit. MARGOT
--- NOTE | 2018-04-18 22:47 | CON ---
DATE OF CONSULTATION: 04/18/2018 DATE OF ADMISSION: 04/15/2018 CONSULTING PHYSICIAN: Dr. Ham. CHIEF COMPLAINT: Right knee swelling. HISTORY OF PRESENT ILLNESS: Ms. Evans is a pleasant 77-year-old female, who was admitted on 04/15/[address] Ham for a decompressive laminectomy. The patient was walked down the hallway, she had a code green. The patient was in distress. She had cyanosis. She was having issues and is currently admitted to the ICU. The patient is resting comfortably in bed The patient is currently in the ICU. PAST MEDICAL HISTORY: Include hypertension, dyslipidemia, prolapsed bladder, AAA. PAST SURGICAL HISTORY: Hysterectomy, adenoidectomy, right shoulder surgery NOS , cataract surgery. MEDICATIONS: Please see admission list for full details. ALLERGIES: No known drug allergies. SOCIAL HISTORY: Former smoker who no longer smokes. Occasional alcohol. The patient is FULL CODE. Family and were at the bedside. PHYSICAL EXAMINATION: VITAL SIGNS: Temperature 97.8, pulse 80, blood pressure 96/71 with a heart rate of 82, respiratory rate of 23, sats in the high 90s. GENERAL: Alert and oriented female, in no acute distress. EXTREMITIES: Right lower extremity, the patient has a small traumatic effusion and resolving ecchymosis of the anterior knee, no crepitus with range of motion. She has got about 0-60 degree arc of motion. She has got no tenderness of her femur, tibia or patella. She has got sensation intact distally with flexion, dorsiflexion, plantar flexion, eversion, inversion, 2+ DP and PT pulse. No pain with hip external or internal rotation. LABORATORY AND X-RAY FINDINGS: Radiographs of her right knee show no small effusion, no acute fracture noted. No obvious large osteophytes, joint space narrowing. IMPRESSION: Right knee effusion. ASSESSMENT AND PLAN: The patient will have follow up in about 4 weeks to come and see me for further evaluation. I would like to have a weightbearing view. The patient was able to ambulate a couple of feet without difficulty this afternoon. The patient is weightbearing as tolerated bilateral upper and lower extremities. Continuous conservative care with Tylenol, ice and compression as needed. Please call if any questions. MARGOT
[2018-04-19] MEDS: Acetaminophen/Codeine 30-300mg Tablet PO PRN ×3 (04:49→22:58)
[2018-04-19 04:57] LABS: #Eosinphils 0.3 thou/uL (0.0-0.7); #Lymphocytes 1.3 thou/uL (1.20-3.40); #Neutrophils 6.6 thou/uL (1.40-6.50); %Basophils 0.3 % (0.0-1.0); %Eosinophils 3.2 % (0.0-10.0); %Lymphocytes 14.3 % (21.0-51.0); %Monocytes 10.8 % (0.0-10.0); %Neutrophils 71.3 % (42.0-75.0); Hemoglobin 8.6 g/dL (12.0-16.0); Mean Corpuscular HGB CONC 34.2 g/dL (32.0-36.0); Mean Corpuscular Hemoglobin 33.4 pg (27.0-31.0); Mean Corpuscular Volume 97.5 fL (78.0-98.0); Mean Platelet Volume 6.7 fL (7.4-10.4); Platelet Count 294 thou/uL (130-400); RBC Distribution Width 10.8 % (11.5-14.5); Red Blood Cell (RBC) Count 2.58 mill/uL (4.20-5.40); White Blood Cell (WBC) Count 9.3 thou/uL (4.8-10.8)
[2018-04-19 05:10] LABS: Anion Gap 8 mmol/L (10-20); BUN (Urea Nitrogen) 14 mg/dL (9.8-20.1); Calc. Creatinine Clearance 57 mL/min (70-130); Calcium 8.2 mg/dL (7.8-10.44); Carbon Dioxide 24 mmol/L (23-31); Chloride 109 mmol/L (98-107); Estimated GFR-MDRD 77; Glucose 105 mg/dL (83-110); Sodium 137 mmol/L (136-145)
[2018-04-19] MEDS: Sodium Chloride 0.9% 1,000 ML IV SCH (11:35)
--- NOTE | 2018-04-19 12:36 | PRG ---
DATE OF SERVICE: 04/19/2018 SUBJECTIVE: This morning, she says she is better, less short of breath. She is coughing some blood. OBJECTIVE: VITAL SIGNS: Pulse 68, blood pressure 140/60, sats 97% on 2 liters, and respiratory rate 18. CHEST: No wheezing. CARDIAC: Normal S1 and S2, no gallops. ABDOMEN: Soft, without any masses. IMPRESSION: 1. Chronic obstructive pulmonary disease. 2. Hemoptysis, probably bronchitis. 3. Status post hypertension, resolved. 4. Laminectomy. PLAN: Disposition as per primary care physician. She was started empirically on antibiotics, Zithro max and ceftriaxone, which I may consider switching over to oral medication. PT and supportive care. We will follow while in the ICU.
--- NOTE | 2018-04-19 13:15 | PRG ---
DATE OF SERVICE: 04/19/2018 Ms. Evans continues to recover from her lumbar decompression fusion. She experienced respiratory failure postoperatively, but seems to be doing very well. Her vital signs have demonstrated improve ment with 97% on nasal cannula at 2 liters. Her blood pressure systolic has ranged 99-119 this morni ng over 48-58 diastolic. Her heart rate has been 76-86. Neurologically, she is alert, appropriate w ith excellent strength in her lower extremity myotomes. She is sitting in a bedside chair and appear s to be in very good spirits. Dr. Bass has seen the patient and evaluated her in regards to knee pain and will arrange for any followup he deems appropriate. From my standpoint, I would be fine wit h transfer to the floor and continued mobilization should our emt/paramedic and Cardiology colleagues f eel appropriate.
[2018-04-19] MEDS: cefTRIAXone\\ROCEPHIN 2 GM in Sodium Chloride 0.9% 100 ML IVPB SCH (17:03)
--- NOTE | 2018-04-19 17:49 | PDOC.PN ---
- Subjective Encounter Start Date: 04/19/18 Encounter Start Time: 15:00 Patient is seen today, alert and oriented. No chest pain, no SOb noted. She is on nasal canula. and Stbale. - Objective MAR Reviewed: Yes Vital Signs & Weight: Vital Signs (12 hours) Temp Pulse Pulse Pulse Resp BP BP 04/19/18 16:30 99.0 F 80 20 04/19/18 16:00 98.1 F 04/19/18 12:00 98.2 F 04/19/18 09:54 86 84 135/53 L 134/49 L 04/19/18 08:32 04/19/18 08:00 98.1 F 67 12 BP Pulse Ox 04/19/18 16:30 152/67 H 04/19/18 16:00 04/19/18 12:00 04/19/18 09:54 04/19/18 08:32 97 04/19/18 08:00 100 Weight Weight 170 lb 6.677 oz Most Recent Monitor Data Heart Rate from ECG 74 NIBP 133/50 NIBP BP-Mean 61 Respiration from ECG 23 SpO2 97 I&O: 04/18/18 04/19/18 04/20/18 06:59 06:59 06:59 Intake Total 2764 4725 319 Output Total 550 2100 1250 Balance 2210 6676 -957 Result Diagrams: 04/19/18 04:36 04/19/18 04:36 Radiology Reviewed by me: Yes Phys Exam - Physical Examination HEENT: PERRLA, moist MMs Neck: no nodes, no JVD Respiratory: no wheezing, no rales Cardiovascular: RRR, no significant murmur Gastrointestinal: soft, non-tender Musculoskeletal: no edema, pulses present Neurological: non-focal, normal sensation Lymphatic: no nodes Dx/Plan (1) Acute respiratory failure with hypoxia Code(s): J96.01 - ACUTE RESPIRATORY FAILURE WITH HYPOXIA Status: Acute Comment: Will continue with IV abx for Pneumonia, likely reason for her SOB, Will cotninue to Monitor on the medical floor. (2) Leukocytosis Code(s): D72.829 - ELEVATED WHITE BLOOD CELL COUNT, UNSPECIFIED Status: Resolved (3) Respiratory distress Code(s): R06.03 - ACUTE RESPIRATORY DISTRESS Status: Resolved (4) Hypertension Code(s): I10 - ESSENTIAL (PRIMARY) HYPERTENSION Status: Chronic Qualifiers: Hypertension type: essential hypertension Qualified Code(s): I10 - Essential (primary) hypertension Comment: Stbale, Continue on home MEds. (5) S/P laminectomy Code(s): Z98.890 - OTHER SPECIFIED POSTPROCEDURAL STATES Status: Acute Comment: Planned Inpatient rehab, stdereck, continue using the brace. (6) NSTEMI (non-ST elevated myocardial infarction) Code(s): I21.4 - NON-ST ELEVATION (NSTEMI) MYOCARDIAL INFARCTION Status: Acute Comment: Cardilogy following, was deman iscemia. Continue aspirin, and BB per cardiology,. - Plan cont current plan of care, plan discussed w/ family, continue antibiotics, PT/OT , manager social media, respiratory therapy, incentive spirometry, DVT proph w/ lovenox * . Review of Systems - Review of Systems Eyes: negative: Pain, Vision Change, Conjunctivae Inflammation, Eyelid Inflammation, Redness, Other ENT: negative: Ear Pain, Ear Discharge, Nose Pain, Nose Discharge, Nose Congestion, Mouth Pain, Mouth Swelling, Throat Pain, Throat Swelling, Other Respiratory: negative: Cough, Dry, Shortness of Breath, Hemoptysis, SOB with Excertion, Pleuritic Pain, Sputum, Wheezing Cardiovascular: negative: chest pain, palpitations, orthopnea, paroxysmal nocturnal dyspnea, edema, light headedness, other Gastrointestinal: negative: Nausea, Vomiting, Abdominal Pain, Diarrhea, Constipation, Melena, Hematochezia, Other Genitourinary: negative: Dysuria, Frequency, Incontinence, Hematuria, Retention , Other Musculoskeletal: negative: Neck Pain, Shoulder Pain, Arm Pain, Back Pain, Hand Pain, Leg Pain, Foot Pain, Other - Medications/Allergies Allergies/Adverse Reactions: Allergies Allergy/AdvReac Type Severity Reaction Status Date / Time No Known Allergies Allergy Unverified 04/14/18 12:09 Medications: Current Medications Acetaminophen (Tylenol) 650 mg PO Q4H PRN PRN Reason: Headache/Fever or Pain Acetaminophen (Tylenol) 650 mg [place] Q4H PRN PRN Reason: Headache/Fever or Pain Acetaminophen/Codeine Phosphate (Tylenol #3) 1 tab PO Q3H PRN PRN Reason: Mild Pain (1-3) Last Admin: 04/19/18 17:01 Dose: 1 tab Acetaminophen/Codeine Phosphate (Tylenol #3) 2 tab PO Q3H PRN PRN Reason: Moderate Pain (4-6) Last Admin: 04/19/18 04:49 Dose: 2 tab Al Hydroxide/Mg Hydroxide (Maalox) 30 ml PO Q4H PRN PRN Reason: Indigestion Bisacodyl (Dulcolax) 10 mg MT Q12H PRN PRN Reason: Constipation Diphenhydramine HCl (Benadryl) 25 mg PO Q6H PRN PRN Reason: Itching Diphenhydramine HCl (Benadryl) 25 mg IVP Q6H PRN PRN Reason: Itching Estrogens Conjugated (Premarin Cream) 0 gm VAG ASDIR KASANDRA Fenofibrate (Tricor) 145 mg PO HS [facility] Last Admin: 04/18/18 20:19 Dose: 145 mg Norepinephrine Bitartrate (Levophed) 250 mls @ 0 mls/hr IVPB INF PRN; Protocol PRN Reason: Blood Pressure Azithromycin 500 mg/ Sodium (Chloride) 250 mls @ 250 mls/hr IVPB Q24HR [facility] Last Admin: 04/18/18 16:21 Dose: 250 mls Ceftriaxone Sodium 2 gm/ (Sodium Chloride) 100 mls @ 200 mls/hr IVPB Q24HR [facility] Last Admin: 04/19/18 17:03 Dose: 100 mls Sodium Chloride (Normal Saline 0.9%) 1,000 mls @ 50 mls/hr IV .Q20H [facility] Last Admin: 04/19/18 11:35 Dose: Not Given Magnesium Hydroxide (Milk Of Magnesium) 30 ml PO Q12H PRN PRN Reason: Constipation Morphine Sulfate (Morphine) 2 mg SLOW IVP Q1H PRN PRN Reason: Moderate Breakthrough Pain Last Admin: 04/15/18 17:41 Dose: 2 mg Morphine Sulfate (Morphine) 4 mg SLOW IVP Q1H PRN PRN Reason: Severe Breakthrough Pain Ondansetron HCl (Zofran) 4 mg IVP DAILYPRN PRN PRN Reason: Nausea Promethazine HCl (Phenergan) 12.5 mg PO Q4H PRN PRN Reason: Nausea/Vomiting Simvastatin (Zocor) 10 mg PO HS [facility] Last Admin: 04/18/18 20:20 Dose: 10 mg Sodium Chloride (Flush - Normal Saline) 10 ml IVF PRN PRN PRN Reason: Saline Flush Telmisartan (Micardis) 80 mg PO HS [facility] Last Admin: 04/18/18 20:19 Dose: Not Given Tizanidine HCl (Zanaflex) 4 mg PO Q6H PRN PRN Reason: Muscle Spasm Zolpidem Tartrate (Ambien) 5 mg PO HSPRN PRN PRN Reason: Insomnia
[2018-04-19] MEDS: Azithromycin 500 MG in Sodium Chloride 0.9% 250 ML 250 ML IVPB SCH (19:17)
[2018-04-19] MEDS: Atorvastatin Calcium 40 MG TAB PO SCH (22:45)
[2018-04-19] MEDS: Simvastatin 5 MG TAB PO SCH (22:45)
[2018-04-19] MEDS: Fenofibrate Nanocrystallized 145 MG TAB PO SCH (22:46)
[2018-04-20 05:42] LABS: #Eosinphils 0.1 thou/uL (0.0-0.7); #Monocytes 0.9 thou/uL (0.11-0.59); #Neutrophils 5.5 thou/uL (1.40-6.50); %Basophils 0.5 % (0.0-1.0); %Lymphocytes 13.8 % (21.0-51.0); %Monocytes 11.9 % (0.0-10.0); %Neutrophils 72.8 % (42.0-75.0); Hemoglobin 7.9 g/dL (12.0-16.0); Mean Corpuscular HGB CONC 34.4 g/dL (32.0-36.0); Mean Corpuscular Hemoglobin 33.3 pg (27.0-31.0); Mean Platelet Volume 6.6 fL (7.4-10.4); Platelet Count 323 thou/uL (130-400); RBC Distribution Width 10.8 % (11.5-14.5); Red Blood Cell (RBC) Count 2.36 mill/uL (4.20-5.40); White Blood Cell (WBC) Count 7.5 thou/uL (4.8-10.8)
[2018-04-20 05:57] LABS: Anion Gap 11 mmol/L (10-20); BUN (Urea Nitrogen) 14 mg/dL (9.8-20.1); Calc. Creatinine Clearance 76 mL/min (70-130); Calcium 8.2 mg/dL (7.8-10.44); Carbon Dioxide 21 mmol/L (23-31); Chloride 110 mmol/L (98-107); Estimated GFR-MDRD 76; Glucose 116 mg/dL (83-110); Potassium 4.2 mmol/L (3.5-5.1); Sodium 138 mmol/L (136-145)
[2018-04-20] MEDS: Carvedilol 3.125 MG TAB PO SCH ×2 (09:04→17:59)
[2018-04-20] MEDS: Aspirin 81 mg Enteric Coated Tablet PO SCH (09:04)
[2018-04-20] MEDS: Sodium Chloride 0.9% 1,000 ML IV SCH (09:05)
[2018-04-20] MEDS ORDERED: Aspirin 81 mg Enteric Coated Tablet ONE (09:09)
--- NOTE | 2018-04-20 10:12 | PRG ---
DATE OF SERVICE: 04/20/2018 SUBJECTIVE: Ms. Evans has been transferred to the floor. She is lying in bed, eating her breakf ast. She is in good spirits and neurologically continues to do well. She has been initiated on a ba by aspirin by Cardiology for the concern of a [id number] myocardial infarction. She has some r ight hip and proximal thigh pain, which I suspect is consistent with radiculitis that is improving. We will continue to mobilize her and hopefully proceed to rehabilitation placement.
[2018-04-20] MEDS: Acetaminophen/Codeine 30-300mg Tablet PO PRN ×2 (11:46→18:28)
--- NOTE | 2018-04-20 12:23 | PRG ---
DATE OF SERVICE: 04/20/2018 SUBJECTIVE: She is doing quite well, though she has multiple complaints. She has been complaining o f left-sided chest pain, back pain, and right leg pain. OBJECTIVE: VITAL SIGNS: Temperature 97, pulse 64, respiration rate 16, sats are 90%, blood pressure is slightly elevated at 173/70. CHEST: No wheezing or crackles. CARDIAC: Normal S1, S2. No gallops. ABDOMEN: Soft, no masses. EXTREMITIES: No edema. LABORATORY DATA: White count 7000, hemoglobin and hematocrit are 7 and 22, platelet count is normal. IMPRESSION: Status post laminectomy, status post respiratory failure, status post myocardial infarct ion. PLAN: The patient appears to be stable, has multiple complaints. She is on antibiotic, it is unclea r she is on for. Consider discontinuing antibiotics, p.o. medication.
--- NOTE | 2018-04-20 14:59 | ULT ---
RIGHT LOWER EXTREMITY VENOUS DUPLEX EXAM: INDICATION: Post back surgery last week with right lower extremity edema and pain. FINDINGS: The deep veins of the right lower extremity were evaluated with color Doppler, spectral analysis, and compression. These veins showed normal blood flow and compression. No evidence of DVT. Complex fluid collection in the right popliteal fossa measures approximately 1.0 x 4.0 cm suggesting a complex Meadows's cyst. IMPRESSION: No evidence of deep vein thrombosis in the right lower extremity. POS: [facility]
[2018-04-20] MEDS: Azithromycin 500 MG in Sodium Chloride 0.9% 250 ML 250 ML IVPB SCH (17:59)
[2018-04-20] MEDS: cefTRIAXone\\ROCEPHIN 2 GM in Sodium Chloride 0.9% 100 ML IVPB SCH (17:59)
[2018-04-20] MEDS: Simvastatin 5 MG TAB PO SCH (21:08)
[2018-04-20] MEDS: Atorvastatin Calcium 40 MG TAB PO SCH (21:08)
[2018-04-20] MEDS: Fenofibrate Nanocrystallized 145 MG TAB PO SCH (21:10)
--- NOTE | 2018-04-21 05:49 | PDOC.CTH ---
Cardiology Progress Note - Subjective Doing much better over weekend after receiving hydration on saturday and saturday. No current symptoms except for edema noted to the right LE (new). CT chest and US of LE on as negative for PE, DVT - Objective Vital Signs Temp Pulse Resp BP Pulse Ox 04/21/18 04:14 97.8 F 59 L 18 145/66 H 99 04/21/18 01:49 97.8 F 60 17 135/64 99 04/20/18 21:16 97.8 F 58 L 19 115/55 L 100 04/20/18 20:00 97.8 F 58 L 19 100 Weight 170 lb 6.677 oz 04/19/18 04/20/18 04/21/18 06:59 06:59 06:59 Intake Total 4725 319 1500 Output Total 2100 1250 1300 Balance 2625 -931 200 - Physical Examination General/Neuro: alert & oriented x3, NAD Neck: carotid US brisk, no JVD present Lungs: CTA, unlabored respirations Heart: PMI normal, RRR Abdomen: no HSM, NT/ND, soft Extremities: + femoral B - Labs Result Diagrams: 04/21/18 05:18 04/21/18 05:18 Troponin/CKMB CK-MB (CK-2) 2.8 ng/mL (0-6.6) 04/17/18 17:44 Troponin I 0.941 ng/mL (< 0.028) H* 04/17/18 17:44 - Assessment/Plan abnormal EKG hypotension elevated troponin recent laminectomy Anemia Pt doing well overall. Discussed fu with cardiology as o/p. She states she will fu in [facility] of pending Given no symptoms and recent back surgery and EF of 65%, recommend outpatient fu with cardiology
[2018-04-21 05:56] LABS: Anion Gap 12 mmol/L (10-20); BUN (Urea Nitrogen) 14 mg/dL (9.8-20.1); Calc. Creatinine Clearance 75 mL/min (70-130); Calcium 8.4 mg/dL (7.8-10.44); Carbon Dioxide 22 mmol/L (23-31); Chloride 112 mmol/L (98-107); Estimated GFR-MDRD 75; Glucose 102 mg/dL (83-110); Potassium 4.5 mmol/L (3.5-5.1); Sodium 141 mmol/L (136-145)
[2018-04-21 06:39] LABS: #Basophils 0.1 thou/uL (0.0-0.2); #Eosinphils 0.4 thou/uL (0.0-0.7); #Lymphocytes 1.1 thou/uL (1.20-3.40); #Monocytes 0.9 thou/uL (0.11-0.59); #Neutrophils 5.2 thou/uL (1.40-6.50); %Basophils 0.7 % (0.0-1.0); %Eosinophils 5.6 % (0.0-10.0); %Lymphocytes 13.9 % (21.0-51.0); %Monocytes 12.2 % (0.0-10.0); %Neutrophils 67.5 % (42.0-75.0); Hemoglobin 8.3 g/dL (12.0-16.0); Mean Corpuscular HGB CONC 33.3 g/dL (32.0-36.0); Mean Corpuscular Hemoglobin 32.6 pg (27.0-31.0); Mean Corpuscular Volume 97.8 fL (78.0-98.0); Mean Platelet Volume 6.8 fL (7.4-10.4); Platelet Count 392 thou/uL (130-400); Red Blood Cell (RBC) Count 2.55 mill/uL (4.20-5.40); White Blood Cell (WBC) Count 7.7 thou/uL (4.8-10.8)
[2018-04-21] MEDS: Aspirin 81 mg Enteric Coated Tablet PO SCH (08:05)
[2018-04-21] MEDS: Carvedilol 3.125 MG TAB PO SCH ×2 (08:05→18:58)
--- NOTE | 2018-04-21 08:12 | PRG ---
DATE OF SERVICE: 04/21/2018 SUBJECTIVE: I saw Ms. Evans in the surgical floor this morning. Over the weekend, she has moved out of the ICU, has not had any more events in which she has had shortness of breath or any cardiac issues at all. She has been working with her physical therapy group hospital. She has not be en doing the stretching of her hip flexors or iliotibial bands that we demonstrated. Overnight, her vital signs have been relatively stable. She remains on oxygen by nasal cannula. Incision is clean and dry. I do not find any new neurological deficits in the lower extremities. Ms. Evans's next steps will involve a transfer to inpatient rehabilitation. Weaning off her oxyg en. Revisit with Cardiology to ensure rehabilitation and moved to rehab is acceptable. She will wea r her brace in rehab when she is up and out of bed, but she will have it off when she is in bed. She does not need to shower in it. She knows not to submerge her incision for the next month under the surface of any water as would happen in a bathtub or swimming pool. She knows to avoid bending, lift ing and twisting. She will follow up with us in 2 weeks' time.
[2018-04-21] MEDS ORDERED: Furosemide 40 MG/4 ML VIAL ONE (11:26)
[2018-04-21] MEDS: Sodium Chloride 0.9% 1,000 ML IV SCH (11:37)
[2018-04-21] MEDS ORDERED: Furosemide 20 MG/2 ML VIAL SLOW IVP SCH (12:15)
[2018-04-21 12:30] LABS: CKMB 3.2 ng/mL (0-6.6); Troponin I 0.151 ng/mL (< 0.028)
--- NOTE | 2018-04-21 13:06 | PDOC.PN ---
- Subjective Encounter Start Date: 04/21/18 Encounter Start Time: 13:04 Subjective: c/o chest tightness.gets SOb w talking too much - Objective MAR Reviewed: Yes Vital Signs & Weight: Vital Signs (12 hours) Temp Pulse Resp BP Pulse Ox 04/21/18 08:16 97.8 F 59 L 18 98 04/21/18 08:00 97.9 F 60 16 179/72 H 99 04/21/18 04:14 97.8 F 59 L 18 145/66 H 99 04/21/18 01:49 97.8 F 60 17 135/64 99 Weight Weight 170 lb 6.677 oz Most Recent Monitor Data Heart Rate from ECG 74 NIBP 133/50 NIBP BP-Mean 61 Respiration from ECG 23 SpO2 97 I&O: 04/20/18 04/21/18 04/22/18 06:59 06:59 06:59 Intake Total 319 1500 300 Output Total 1250 1300 Balance -931 200 300 Result Diagrams: 04/21/18 05:18 04/21/18 05:18 Additional Labs: Laboratory Tests 04/15/18 04/16/18 04/17/18 14:51 06:11 14:20 Troponin I 0.011 1.363 H* 0.837 H* 04/17/18 04/21/18 17:44 11:56 Troponin I 0.941 H* 0.151 H Phys Exam - Physical Examination Constitutional: NAD easily winded HEENT: PERRLA, moist MMs, sclera anicteric, oral pharynx no lesions Neck: no nodes, no JVD, supple, full ROM Respiratory: no wheezing, no rhonchi, clear to auscultation bilateral few rales at bases Cardiovascular: RRR, no significant murmur, no rub Gastrointestinal: soft, non-tender, no distention, positive bowel sounds Musculoskeletal: no edema, pulses present Neurological: non-focal, normal sensation, moves all 4 limbs Psychiatric: normal affect, A&O x 3 Skin: no rash Dx/Plan (1) Chest pain Code(s): R07.9 - CHEST PAIN, UNSPECIFIED Status: Acute (2) Fever Code(s): R50.9 - FEVER, UNSPECIFIED Status: Acute Qualifiers: Fever type: unspecified Qualified Code(s): R50.9 - Fever, unspecified (3) NSTEMI (non-ST elevated myocardial infarction) Code(s): I21.4 - NON-ST ELEVATION (NSTEMI) MYOCARDIAL INFARCTION Status: Acute Comment: Cardilogy following, was deman iscemia. Continue aspirin, and BB per cardiology,. (4) S/P laminectomy Code(s): Z98.890 - OTHER SPECIFIED POSTPROCEDURAL STATES Status: Acute Comment: Planned Inpatient rehab, stbale, continue using the brace. (5) Hypertension Code(s): I10 - ESSENTIAL (PRIMARY) HYPERTENSION Status: Chronic Qualifiers: Hypertension type: essential hypertension Qualified Code(s): I10 - Essential (primary) hypertension Comment: Stb[place], Continue on home MEds. (6) Leukocytosis Code(s): D72.829 - ELEVATED WHITE BLOOD CELL COUNT, UNSPECIFIED Status: Resolved (7) Acute respiratory failure with hypoxia Code(s): J96.01 - ACUTE RESPIRATORY FAILURE WITH HYPOXIA Status: Resolved Comment: abx for Pneumonia, likely reason for her SOB, Will cotninue to Monitor on the medical floor. - Plan PT/OT, incentive spirometry, DVT proph w/SCDs repeated troponin trending down. ?Angina.OP work up needed -: will give 1 dose lasix as CXr shows Pulm vasc congestion.DC IVF -: may add Nitrates .will defer to Cardiolpogy given hypotensive episode. -: Hd stable. will follow. -: meds reviewed * . Review of Systems - Review of Systems Constitutional: negative: fever, chills, sweats, weakness, malaise, other Eyes: negative: Pain, Vision Change, Conjunctivae Inflammation, Eyelid Inflammation, Redness, Other Respiratory: Shortness of Breath, SOB with Excertion. negative: Cough, Dry, Hemoptysis, Pleuritic Pain, Sputum, Wheezing Cardiovascular: negative: chest pain, palpitations, orthopnea, paroxysmal nocturnal dyspnea, edema, light headedness, other Gastrointestinal: negative: Nausea, Vomiting, Abdominal Pain, Diarrhea, Constipation, Melena, Hematochezia, Other Genitourinary: negative: Dysuria, Frequency, Incontinence, Hematuria, Retention , Other Musculoskeletal: negative: Neck Pain, Shoulder Pain, Arm Pain, Back Pain, Hand Pain, Leg Pain, Foot Pain, Other Skin: negative: Rash, Lesions, Mendel, Bruising, Other Neurological: negative: Weakness, Numbness, Incoordination, Change in Speech, Confusion, Seizures, Other - Medications/Allergies Allergies/Adverse Reactions: Allergies Allergy/AdvReac Type Severity Reaction Status Date / Time No Known Allergies Allergy Unverified 04/14/18 12:09 Medications: Current Medications Acetaminophen (Tylenol) 650 mg PO Q4H PRN PRN Reason: Headache/Fever or Pain Acetaminophen (Tylenol) 650 mg [place] Q4H PRN PRN Reason: Headache/Fever or Pain Acetaminophen/Codeine Phosphate (Tylenol #3) 1 tab PO Q3H PRN PRN Reason: Mild Pain (1-3) Last Admin: 04/19/18 17:01 Dose: 1 tab Acetaminophen/Codeine Phosphate (Tylenol #3) 2 tab PO Q3H PRN PRN Reason: Moderate Pain (4-6) Last Admin: 04/20/18 18:28 Dose: 2 tab Al Hydroxide/Mg Hydroxide (Maalox) 30 ml PO Q4H PRN PRN Reason: Indigestion Aspirin (Ecotrin) 81 mg PO DAILY [facility] Last Admin: 04/21/18 08:05 Dose: 81 mg Atorvastatin Calcium (Lipitor) 40 mg PO [facility] Last Admin: 04/20/18 21:08 Dose: 40 mg Bisacodyl (Dulcolax) 10 mg [place] Q12H PRN PRN Reason: Constipation Carvedilol (Coreg) 3.125 mg PO BID-[facility] Last Admin: 04/21/18 08:05 Dose: 3.125 mg Diphenhydramine HCl (Benadryl) 25 mg PO Q6H PRN PRN Reason: Itching Diphenhydramine HCl (Benadryl) 25 mg IVP Q6H PRN PRN Reason: Itching Estrogens Conjugated (Premarin Cream) 0 gm VAG ASDIR [facility] Fenofibrate (Tricor) 145 mg PO [facility] Last Admin: 04/20/18 21:10 Dose: 145 mg Furosemide (Lasix) 20 mg SLOW IVP NOW [facility] Stop: 04/21/18 14:15 Last Admin: 04/21/18 12:50 Dose: Not Given Norepinephrine Bitartrate (Levophed) 250 mls @ 0 mls/hr IVPB INF PRN; Protocol PRN Reason: Blood Pressure Azithromycin 500 mg/ Sodium (Chloride) 250 mls @ 250 mls/hr IVPB Q24HR [facility] Last Admin: 04/20/18 17:59 Dose: 250 mls Ceftriaxone Sodium 2 gm/ (Sodium Chloride) 100 mls @ 200 mls/hr IVPB Q24HR [facility] Last Admin: 04/20/18 17:59 Dose: 100 mls Sodium Chloride (Normal Saline 0.9%) 1,000 mls @ 50 mls/hr IV .Q20H [facility] Last Admin: 04/21/18 11:37 Dose: 1,000 mls Magnesium Hydroxide (Milk Of Magnesium) 30 ml PO Q12H PRN PRN Reason: Constipation Morphine Sulfate (Morphine) 2 mg SLOW IVP Q1H PRN PRN Reason: Moderate Breakthrough Pain Last Admin: 04/15/18 17:41 Dose: 2 mg Morphine Sulfate (Morphine) 4 mg SLOW IVP Q1H PRN PRN Reason: Severe Breakthrough Pain Ondansetron HCl (Zofran) 4 mg IVP DAILYPRN PRN PRN Reason: Nausea Promethazine HCl (Phenergan) 12.5 mg PO Q4H PRN PRN Reason: Nausea/Vomiting Simvastatin (Zocor) 10 mg PO HS [facility] Last Admin: 04/20/18 21:08 Dose: 10 mg Sodium Chloride (Flush - Normal Saline) 10 ml IVF PRN PRN PRN Reason: Saline Flush Telmisartan (Micardis) 80 mg PO HS [facility] Last Admin: 04/20/18 21:09 Dose: Not Given Tizanidine HCl (Zanaflex) 4 mg PO Q6H PRN PRN Reason: Muscle Spasm Zolpidem Tartrate (Ambien) 5 mg PO HSPRN PRN PRN Reason: Insomnia
--- NOTE | 2018-04-21 13:31 | RAD ---
AP CHEST: Indication: Chest pain. Comparison: 04-17-18 FINDINGS: There is stable cardiomegaly. There is mild pulmonary vascular congestion. There are tiny bilateral p leural effusions. No pneumothorax is evident. No acute osseous abnormality is evident. IMPRESSION: Cardiomegaly. Mild pulmonary vascular congestion. Small pleural effusions suggest volume overload or CHF. POS: [facility]
[2018-04-21] MEDS: Acetaminophen/Codeine 30-300mg Tablet PO PRN (15:26)
[2018-04-21] MEDS: Azithromycin 500 MG in Sodium Chloride 0.9% 250 ML 250 ML IVPB SCH (15:27)
--- NOTE | 2018-04-21 15:57 | PRG ---
DATE OF SERVICE: 04/21/2018 SERVICE: Pulmonary Medicine. INTERVAL HISTORY: The patient is doing fine from a respiratory standpoint. She denies any current c hest pain, nausea, vomiting, fevers or chills. Otherwise, there has been no interval change to her c ondition. She indicates that her breathing is a little heavy currently. That being said, she has be en maintained on the same amount of 1-1/2 liters nasal cannula for a protracted course. We are going to see if we can wean her today. PHYSICAL EXAMINATION: VITAL SIGNS: Afebrile, pulse 59, blood pressure 179/72, respirations 16, saturation 99% on room air. GENERAL: The patient is awake and alert, in no apparent distress. LUNGS: Decent air entry. Crackles are present. No prolonged expiratory phase is appreciated. HEART: Normal rate, regular. ABDOMEN: Soft, nontender, nondistended. Bowel sounds are positive. MUSCULOSKELETAL: No cyanosis or clubbing. There is 1+ pitting in the bilateral lower extremities. NEUROLOGIC: Grossly nonfocal. LABORATORY DATA: WBC 7.7, hemoglobin 8.3, platelets 392,000. Creatinine 0.75. Basic metabolic prof ile is otherwise unremarkable. Troponin is 0.151, down trending. Urine culture is unremarkable. IMAGING: Chest x-ray demonstrates findings consistent with mild volume overload. She has cephalizat ion of the pulmonary vasculature. There is also bilateral pleural parenchymal blunting, possibly con sistent with small effusions. ASSESSMENT: 1. Acute hypoxic respiratory failure. 2. Community-acquired pneumonia secondary to overt aspiration, possible. 3. Non-ST elevation myocardial infarction, likely demand. 4. Acute on chronic diastolic heart failure. DISCUSSION AND PLAN: Discontinue the IV fluids. We will give a small dose of Lasix today. Pulmonar y will continue to follow along, intermittently during the hospital stay. Laboratories will be inter rupted tomorrow morning.
[2018-04-21] MEDS: cefTRIAXone\\ROCEPHIN 2 GM in Sodium Chloride 0.9% 100 ML IVPB SCH (19:42)
[2018-04-21] MEDS: Amoxicillin/Potassium Clav 875 MG TAB PO SCH (21:14)
[2018-04-21] MEDS: Fenofibrate Nanocrystallized 145 MG TAB PO SCH (21:15)
[2018-04-21] MEDS: Simvastatin 5 MG TAB PO SCH (21:15)
[2018-04-21] MEDS: Atorvastatin Calcium 40 MG TAB PO SCH (21:15)
--- NOTE | 2018-04-21 23:49 | PRG ---
DATE OF SERVICE: 04/21/2018 I visited with Mr. Evans on three separate occasions today. She had another episode of chest ying n with shortness of breath this afternoon. She was seen and evaluated. At that time, I discussed co marcial angiography. She was adamant against angio at that time. I was then called to her room to lavern miller with her . I again discussed proceeding with angiography. She states at this point she is not interested. She understands the risk of UT, and other complications if her symptoms ar e cardiac related. She states her symptoms are felt to be positional. She states she is short of br eath quite a bit and this is a chronic issue. At this point, we would recommend continuing statin therapy. We will hold off on beta ricardo therap y given heart rate in the 50s. Blood pressure appears to be stable after IV hydration.
[2018-04-22] MEDS: Acetaminophen/Codeine 30-300mg Tablet PO PRN ×3 (03:31→17:55)
--- NOTE | 2018-04-22 05:49 | PDOC.CTH ---
Cardiology Progress Note - Subjective doing well. SBO noted today getting from BR to bed. No CP present. - Objective Vital Signs Temp Pulse Resp BP Pulse Ox 04/22/18 04:07 98.1 F 61 18 145/70 H 97 04/22/18 00:43 98.2 F 62 19 145/64 H 97 04/21/18 21:15 98.6 F 59 L 16 98 04/21/18 21:08 98.6 F 59 L 16 127/74 98 Weight 170 lb 6.677 oz 04/20/18 04/21/18 04/22/18 06:59 06:59 06:59 Intake Total 319 1500 300 Output Total 1250 1300 Balance -931 200 300 - Physical Examination General/Neuro: alert & oriented x3, NAD Neck: carotid US brisk, no JVD present Lungs: CTA, unlabored respirations, other: (mild crackles at bases) Heart: PMI normal Abdomen: NT/ND, soft - Labs Result Diagrams: 04/21/18 05:18 04/21/18 05:18 Troponin/CKMB CK-MB (CK-2) 3.2 ng/mL (0-6.6) 04/21/18 11:56 Troponin I 0.151 ng/mL (< 0.028) H 04/21/18 11:56 - Assessment/Plan abnormal EKG CP SOB hypotension elevated troponin recent laminectomy Anemia Pt again opts for conservative treatment Given one dose of lasix IV Continue current meds Fu with me or with Document Review Attorney in [place] as outpatinet.
[2018-04-22] MEDS: Furosemide 40 MG TAB PO SCH (06:25)
[2018-04-22] MEDS: Amoxicillin/Potassium Clav 875 MG TAB PO SCH ×2 (07:57→20:03)
[2018-04-22] MEDS: Aspirin 81 mg Enteric Coated Tablet PO SCH (07:57)
[2018-04-22] MEDS: Carvedilol 3.125 MG TAB PO SCH ×2 (07:57→17:11)
--- NOTE | 2018-04-22 10:19 | PRG ---
DATE OF SERVICE: 04/22/2018 Ms. Evans is from decompression fusion lumbar spine. She has had a few episodes of shortne ss of breath and multiple cardiac evaluations for these. She had a mildly elevated troponin that is trending back down. She is feeling better this morning after having received a dose of diuretic yest erday. She is in better spirits. She refused a trip to the laborer plumbing yesterday. Vital signs have been stable overnight, although she remains on oxygen by nasal cannula. Her neurolo gical examination is reassuring and the right knee pain that she complained of previously is improvin g. Ms. Evans is scheduled to go to inpatient rehabilitation and we can make that transfer as soon as . We will ensure that the Cardiology and medical teams are on board with that transfer.
--- NOTE | 2018-04-22 13:21 | PRG ---
DATE OF SERVICE: 04/22/2018 SERVICE: Pulmonary Medicine. INTERVAL HISTORY: The patient is doing great from a respiratory perspective today. She did not have any other events overnight. There were no chest pain episodes, or shortness of breath. She ended up getting a dose of Lasix yesterday, had a wonderful response to it. Yesterday, she could barely get out of bed to a chair without being significantly winded. Today, she is walked back and forth between the nurses station and is toileting herself with a little bit of assistance. PHYSICAL EXAMINATION: VITAL SIGNS: Afebrile, pulse 70, blood pressure 145/61, respirations 18, saturation 98% on room air. GENERAL: The patient is awake, alert, in no apparent distress. LUNGS: Decent air entry. The crackles are much improved. No prolonged expiratory phase or wheezing is appreciated. HEART: Normal rate, regular. ABDOMEN: Soft, nontender, nondistended. Bowel sounds are positive. MUSCULOSKELETAL: No cyanosis or clubbing. There is no pitting in the bilateral lower extremities. NEUROLOGIC: Grossly nonfocal. LABORATORY DATA: WBC 7.7, hemoglobin 8.3, platelets 392,000. Basic metabolic profile is otherwise unremarkable. Cardiac enzymes are down trending. Urine culture remains negative. ASSESSMENT: 1. Acute hypoxic respiratory failure, resolved. 2. Community-acquired pneumonia, possible. 3. Non-ST elevation myocardial infarction, secondary to demand. 4. Acute on chronic diastolic heart failure. DISCUSSION AND PLAN: The patient has been weaned down to room air. Her volume status is controlled. Cardiology wants to do a catheterization, but the patient has declined at this time. As such, this will be taken up in the outpatient setting. Either way, she has no ongoing requirements for inpatient Pulmonary or Critical Care opinion, and I will sign off. Antibiotics directed at lung issues and can be discontinued. The patient has completed a 5-day course. At this point, she has no further requirements for inpatient pulmonary opinion, and I will sign off. Please call with additional questions or concerns moving forward. MARGOT
--- NOTE | 2018-04-22 14:41 | PDOC.EVN ---
Event Note - Event Note Event Note: Chart reviewed in detail Pt hemodynamically stable. meds as ordered Op f/u w her own environmental analyst for possible Cath in Op setting. OK to DC form IM stand point.No new recs
[2018-04-22] MEDS: Simvastatin 5 MG TAB PO SCH (20:03)
[2018-04-22] MEDS: Fenofibrate Nanocrystallized 145 MG TAB PO SCH (20:04)
[2018-04-22] MEDS: Atorvastatin Calcium 40 MG TAB PO SCH (20:05)
[2018-04-23] MEDS: Furosemide 40 MG TAB PO SCH (06:35)
[2018-04-23] MEDS: Acetaminophen/Codeine 30-300mg Tablet PO PRN ×3 (06:37→20:36)
[2018-04-23] MEDS: Amoxicillin/Potassium Clav 875 MG TAB PO SCH ×2 (08:32→20:33)
[2018-04-23] MEDS: Carvedilol 3.125 MG TAB PO SCH ×2 (08:32→17:34)
[2018-04-23] MEDS: Aspirin 81 mg Enteric Coated Tablet PO SCH (08:32)
--- NOTE | 2018-04-23 10:15 | PRG ---
DATE OF SERVICE: 04/23/2018 I saw Ms. Evans early this morning on rounds. Her oxygen is off. Cardiology and Pulmonology tea ms have deemed her stable for transfer. Medical team is on board, would transfer her to inpatient re habilitation. I do not find any new neurological deficits. She has a bit of bursitis and some pain from the incision, but I think her neurological complaints have resolved with decompression and fusio n. Ms. Evans is ready for transfer and will make that happen today.
--- NOTE | 2018-04-23 14:50 | PQF ---
DATE: 04-23-18 ATTN: DR. SILVER NOVAK Please exercise your independent, professional judgment in responding to the clarification form. Clinical indicators are provided on the bottom of this form for your review Please check appropriate box(s) to clarify if the following diagnosis has been ruled in or ruled out: SEPSIS [ ] Ruled in diagnosis [ ] Continue to treat [ ] Resolved [ X ] Ruled out diagnosis [ ] Other diagnosis [ ] Unable to determine In addition, please specify: Present on Admission (POA): [ ] Yes [X ] No [ ] Unable to determine For continuity of documentation, please document condition throughout progress notes and discharge summary. Thank You. CLINICAL INDICATORS - SIGNS / SYMPTOMS / LABS CONSULT NOTE DR. EUGENE 04-18-18: WHEN SHE CLEARS HER SEPSIS PROFILE, WE WOULD LIKE TO DIURESE HER BACK DOWN TO [place]. WBC: 04-17-18: 16.5 PULSE: 04-17-18: 118 RISK FACTORS: CONSULT NOTE DR. EUGENE 04-18-18: ACUTE HYPOXIC RESPIRATORY FAILURE, CAP SECONDARY TO OVERT ASPIRATION, SUSPECTED TREATMENTS: CONSULT NOTED DR. BABIN 04-19-18: ZITHROMAX AND CEFTRIAXONE (This form is maintained as a part of the permanent medical record) 2014 [employer] All Rights Reserved MARTHA [email or web address] Office: [phone] MARGOT
--- NOTE | 2018-04-23 16:06 | PDOC.PN ---
- Subjective Encounter Start Date: 04/23/18 Encounter Start Time: 16:05 Subjective: feels good, no new comlaints -: working w PT - Objective MAR Reviewed: Yes Vital Signs & Weight: Vital Signs (12 hours) Temp Pulse Resp BP Pulse Ox 04/23/18 15:31 98.2 F 60 18 154/75 H 97 04/23/18 11:52 97.6 F 67 18 135/68 95 04/23/18 07:52 97.9 F 61 20 97 04/23/18 07:43 97.9 F 61 20 147/72 H 97 04/23/18 04:19 98.1 F 67 18 164/73 H 94 L Weight Weight 170 lb 6.677 oz Most Recent Monitor Data Heart Rate from ECG 74 NIBP 133/50 NIBP BP-Mean 61 Respiration from ECG 23 SpO2 97 I&O: 04/22/18 04/23/18 04/24/18 06:59 06:59 06:59 Intake Total 300 1330 Balance 300 1330 Result Diagrams: 04/21/18 05:18 04/21/18 05:18 Additional Labs: Laboratory Tests 04/15/18 04/16/18 04/17/18 14:51 06:11 14:20 Troponin I 0.011 1.363 H* 0.837 H* 04/17/18 04/21/18 17:44 11:56 Troponin I 0.941 H* 0.151 H Phys Exam - Physical Examination Constitutional: NAD HEENT: PERRLA, moist MMs, sclera anicteric, oral pharynx no lesions Neck: no nodes, no JVD, supple, full ROM Respiratory: no wheezing, no rales, no rhonchi, clear to auscultation bilateral Cardiovascular: RRR, no significant murmur, no rub Gastrointestinal: soft, non-tender, no distention, positive bowel sounds Musculoskeletal: no edema, pulses present Neurological: non-focal, normal sensation, moves all 4 limbs Psychiatric: normal affect, A&O x 3 Skin: no rash Dx/Plan (1) Chest pain Code(s): R07.9 - CHEST PAIN, UNSPECIFIED Status: Acute Comment: Likley Angina. Cont medical management. Pt refused Cardiac Cath .F/U OP (2) Fever Code(s): R50.9 - FEVER, UNSPECIFIED Status: Resolved Qualifiers: Fever type: unspecified Qualified Code(s): R50.9 - Fever, unspecified (3) NSTEMI (non-ST elevated myocardial infarction) Code(s): I21.4 - NON-ST ELEVATION (NSTEMI) MYOCARDIAL INFARCTION Status: Acute Comment: Cardilogy following, was con iscemia. Continue aspirin, and BB per cardiology,. (4) S/P laminectomy Code(s): Z98.890 - OTHER SPECIFIED POSTPROCEDURAL STATES Status: Acute Comment: Planned Inpatient rehab, [place], continue using the brace. (5) Hypertension Code(s): I10 - ESSENTIAL (PRIMARY) HYPERTENSION Status: Chronic Qualifiers: Hypertension type: essential hypertension Qualified Code(s): I10 - Essential (primary) hypertension Comment: [place], Continue on home MEds. (6) Leukocytosis Code(s): D72.829 - ELEVATED WHITE BLOOD CELL COUNT, UNSPECIFIED Status: Resolved (7) Acute respiratory failure with hypoxia Code(s): J96.01 - ACUTE RESPIRATORY FAILURE WITH HYPOXIA Status: Resolved Comment: abx for Pneumonia, likely reason for her SOB, Will cotninue to Monitor on the medical floor. - Plan plan discussed w/ family, continue antibiotics, PT/OT, incentive spirometry, DVT proph w/SCDs Cont meds as below. HD stable. -: encouraged to follow up with cardiology in [place] -: ok to DC to rehab from IM side ,when accepeted -: does not need Abx on discharge * . Review of Systems - Review of Systems Constitutional: negative: fever, chills, sweats, weakness, malaise, other ENT: negative: Ear Pain, Ear Discharge, Nose Pain, Nose Discharge, Nose Congestion, Mouth Pain, Mouth Swelling, Throat Pain, Throat Swelling, Other Respiratory: negative: Cough, Dry, Shortness of Breath, Hemoptysis, SOB with Excertion, Pleuritic Pain, Sputum, Wheezing Cardiovascular: negative: chest pain, palpitations, orthopnea, paroxysmal nocturnal dyspnea, edema, light headedness, other Gastrointestinal: negative: Nausea, Vomiting, Abdominal Pain, Diarrhea, Constipation, Melena, Hematochezia, Other Genitourinary: negative: Dysuria, Frequency, Incontinence, Hematuria, Retention , Other Musculoskeletal: negative: Neck Pain, Shoulder Pain, Arm Pain, Back Pain, Hand Pain, Leg Pain, Foot Pain, Other Neurological: negative: Weakness, Numbness, Incoordination, Change in Speech, Confusion, Seizures, Other - Medications/Allergies Allergies/Adverse Reactions: Allergies Allergy/AdvReac Type Severity Reaction Status Date / Time No Known Allergies Allergy Unverified 04/14/18 12:09 Medications: Current Medications Acetaminophen (Tylenol) 650 mg PO Q4H PRN PRN Reason: Headache/Fever or Pain Acetaminophen (Tylenol) 650 mg IA Q4H PRN PRN Reason: Headache/Fever or Pain Acetaminophen/Codeine Phosphate (Tylenol #3) 1 tab PO Q3H PRN PRN Reason: Mild Pain (1-3) Last Admin: 04/23/18 15:11 Dose: 1 tab Acetaminophen/Codeine Phosphate (Tylenol #3) 2 tab PO Q3H PRN PRN Reason: Moderate Pain (4-6) Last Admin: 04/20/18 18:28 Dose: 2 tab Al Hydroxide/Mg Hydroxide (Maalox) 30 ml PO Q4H PRN PRN Reason: Indigestion Amoxicillin/Clavulanate Potassium (Augmentin) 875 mg PO Q12HR [facility] Last Admin: 04/23/18 08:32 Dose: 875 mg Aspirin (Ecotrin) 81 mg PO DAILY [facility] Last Admin: 04/23/18 08:32 Dose: 81 mg Atorvastatin Calcium (Lipitor) 40 mg PO [facility] Last Admin: 04/22/18 20:05 Dose: 40 mg Bisacodyl (Dulcolax) 10 mg IA Q12H PRN PRN Reason: Constipation Carvedilol (Coreg) 3.125 mg PO BID-[facility] Last Admin: 04/23/18 08:32 Dose: 3.125 mg Diphenhydramine HCl (Benadryl) 25 mg PO Q6H PRN PRN Reason: Itching Diphenhydramine HCl (Benadryl) 25 mg IVP Q6H PRN PRN Reason: Itching Estrogens Conjugated (Premarin Cream) [facility] Fenofibrate (Tricor) 145 mg PO [facility] Last Admin: 04/22/18 20:04 Dose: 145 mg Furosemide (Lasix) 40 mg PO DAILY[facility] Last Admin: 04/23/18 06:35 Dose: 40 mg Norepinephrine Bitartrate (Levophed) 250 mls @ 0 mls/hr IVPB INF PRN; Protocol PRN Reason: Blood Pressure Magnesium Hydroxide (Milk Of Magnesium) 30 ml PO Q12H PRN PRN Reason: Constipation Morphine Sulfate (Morphine) 2 mg SLOW IVP Q1H PRN PRN Reason: Moderate Breakthrough Pain Last Admin: 04/15/18 17:41 Dose: 2 mg Morphine Sulfate (Morphine) 4 mg SLOW IVP Q1H PRN PRN Reason: Severe Breakthrough Pain Ondansetron HCl (Zofran) 4 mg IVP DAILYPRN PRN PRN Reason: Nausea Promethazine HCl (Phenergan) 12.5 mg PO Q4H PRN PRN Reason: Nausea/Vomiting Simvastatin (Zocor) 10 mg PO HS [facility] Last Admin: 04/22/18 20:03 Dose: 10 mg Sodium Chloride (Flush - Normal Saline) 10 ml IVF PRN PRN PRN Reason: Saline Flush Telmisartan (Micardis) 80 mg PO [facility] Last Admin: 04/22/18 20:04 Dose: 80 mg Tizanidine HCl (Zanaflex) 4 mg PO Q6H PRN PRN Reason: Muscle Spasm Zolpidem Tartrate (Ambien) 5 mg PO HSPRN PRN PRN Reason: Insomnia
[2018-04-23] MEDS: Atorvastatin Calcium 40 MG TAB PO SCH (20:33)
[2018-04-23] MEDS: Simvastatin 5 MG TAB PO SCH (20:34)
[2018-04-23] MEDS: Fenofibrate Nanocrystallized 145 MG TAB PO SCH (20:34)
--- NOTE | 2018-04-24 07:17 | PRG ---
DATE OF SERVICE: 04/24/2018 Ms. Evans remains in the hospital. Her vitals have been stable. Her neurological examination is stable from prior. Her symptoms are improving. She is not short of breath. Cardiology has signed off. Pulmonology has signed off and she is ready for transfer to inpatient rehabilitation or dischar ge home. Arrangements will be made for that to happen today.
[2018-04-24] MEDS: Acetaminophen/Codeine 30-300mg Tablet PO PRN ×3 (08:19→17:09)
[2018-04-24] MEDS: Furosemide 40 MG TAB PO SCH (08:19)
[2018-04-24] MEDS: Amoxicillin/Potassium Clav 875 MG TAB PO SCH (08:19)
[2018-04-24] MEDS: Aspirin 81 mg Enteric Coated Tablet PO SCH (08:19)
[2018-04-24] MEDS: Carvedilol 3.125 MG TAB PO SCH ×2 (08:19→17:09)
[2018-04-24 13:20] VITALS: BP 137/56; TEMP 98
== END 2018-04-24 17:31 | DRG 453 ==
LOC: SURG A 06:01 → CCU 16:39 → 2SE 04-16 18:54 → CCU 04-17 14:41 → SJJU 04-19 16:13
PROVIDERS: ADMIT Neurological Surgery; ATTEND Neurological Surgery
PROC: 0SG00AJ Fusion of Lumbar Vertebral Joint with Interbody Fusion Device, Posterior Approach, Anterior Column, Open Approach (ICD-10-PCS; principal; 2018-04-15)
PROC: 0SG00J1 Fusion of Lumbar Vertebral Joint with Synthetic Substitute, Posterior Approach, Posterior Column, Open Approach (ICD-10-PCS; 2018-04-15)
PROC: 0SG30J1 Fusion of Lumbosacral Joint with Synthetic Substitute, Posterior Approach, Posterior Column, Open Approach (ICD-10-PCS; 2018-04-15)
PROC: 0SG30AJ Fusion of Lumbosacral Joint with Interbody Fusion Device, Posterior Approach, Anterior Column, Open Approach (ICD-10-PCS; 2018-04-15)
PROC: 3E033XZ Introduction of Vasopressor into Peripheral Vein, Percutaneous Approach (ICD-10-PCS; 2018-04-15)
DX: M43.17 Spondylolisthesis, lumbosacral region (principal); J96.01 Acute respiratory failure with hypoxia; I21.4 Non-ST elevation (NSTEMI) myocardial infarction; I50.33 Acute on chronic diastolic (congestive) heart failure; J69.0 Pneumonitis due to inhalation of food and vomit; M51.17 Intervertebral disc disorders with radiculopathy, lumbosacral region; M48.062 Spinal stenosis, lumbar region with neurogenic claudication; M43.16 Spondylolisthesis, lumbar region; I71.4 Abdominal aortic aneurysm, without rupture; I95.9 Hypotension, unspecified; I11.0 Hypertensive heart disease with heart failure; M25.461 Effusion, right knee; M71.9 Bursopathy, unspecified; J44.9 Chronic obstructive pulmonary disease, unspecified; E78.5 Hyperlipidemia, unspecified; G47.33 Obstructive sleep apnea (adult) (pediatric); Z87.891 Personal history of nicotine dependence; Z79.82 Long term (current) use of aspirin
CPT/HCPCS: 36415; 36416; 71045; 71275; 76001; 80048; 81001; 82533; 82553; 82805; 84484; 85025; 85379; 85610; 85730; 86850; 86900; 86901; 87086; 93005; 93010; 93306; 93970; A4216; C1713; C1768; G8978-GP-CL; G8979-GP-CI; G8979-GP-CJ; G8987-GO-CK; G8988-GO-CI; J0131; J0456; J0670; J0696; J1265; J1940; J2001; J2270; J2370; J2405; J2704; J2765; J3010; J3370; J3490; J7050; L0639; P9045